=== PATIENT | female | born 1950 | race African-American/Black ===

== ENCOUNTER 2021-02-02 18:38 | Inpatient (IN) | payer MEDICARE ==
[~2021-02-02] VITALS: Ht 160 cm; Wt 72.4 kg
--- NOTE | 2021-02-02 18:42 | NUR ---
DAUGHTER, MIGDALIA, CALLS AND STATES THAT HER NUMBER IS [phone]. STATES THAT PATIENT MAY HAVE SEVERAL MEMBERS OF THE FAMILY TO CALL AND REQUEST INFORMATION BUT HER AND PATIENT DISCUSSED SHE IS THE ONLY ONE TO RECIEVE UPDATES. NEED TO CLARIFY WITH PATIENT.
--- NOTE | 2021-02-02 18:50 | NUR ---
SPOKE WITH DAUGHTER, MITCHELL FAYE, STATES THAT SHE HAS POA OF THE PATIENT AND THAT MIGDALIA, THE 1ST DAUGHTER TO CALL, IS ATTEMPTING TO PREVENT HER FROM ASSISTING HER MOTHER AND BEING INVOLVED IN CARE. STATES THAT THE PATIENT WOULD NOT WANT CALLS RESTRICTED, THAT FAMILY IS ALLOWED TO CALL FOR UPDATES. ALSO STATES THAT SHE CAN PROVIDE PAPERWORK. PHONE NUMBER [phone]. STATES THAT STAFF NEEDS TO MAKE SURE AND CLARIFY WITH PATIENT HER WISHES, BECAUSE THEY CONFLICT WITH THE WISHES OF MIGDALIA, DAUGHTER.
[2021-02-02 19:13] LABS: ANION GAP 17.4 mmol/L (8-16); CALCIUM 8.7 mg/dL (8.5-10.1); CARBON DIOXIDE 20.8 mmol/L (21.0-32.0); CREATININE - SERUM 1.7 mg/dL (0.6-1.3); POTASSIUM - SERUM 4.2 mmol/L (3.5-5.1)
[2021-02-02 19:26] LABS: ALBUMIN 1.6 g/dL (3.4-5.0); BILIRUBIN - TOTAL 1.8 mg/dL (0.2-1.3); PROTEIN - SERUM 6.3 g/dL (6.4-8.2)
[2021-02-02 19:36] LABS: BASOPHILS 1.3 % (0-2); EOSINOPHILS 6.2 % (0-7); HEMATOCRIT 27.1 % (36.0-48.0); HEMOGLOBIN 9.4 g/dL (12-16); LYMPHOCYTE ABS# 1.03 10x3/uL (1.18-3.74); LYMPHOCYTES 26.7 % (15-50); MCH 31.8 pg (26.0-34.0); MCHC 34.7 g/dL (31.0-37.0); MCV 91.6 fL (80.0-100.0); MEAN PLATELET VOLUME 10.9 fL (7.4-10.4); NEUTROPHIL ABS# 2.04 10x3/uL (1.56-6.13); NEUTROPHILS 52.8 % (40-80); PLATELET COUNT 137 10x3/uL (130-400); RBC 2.96 10x6/uL (4.00-5.40); RDW 15.3 % (11.5-14.5); WBC 3.9 10x3/uL (4.8-10.8)
[2021-02-02] MEDS ORDERED: NORVASC5 MG PO (19:50)
[2021-02-02] MEDS ORDERED: REMERON15 MG PO (19:50)
[2021-02-02] MEDS ORDERED: TENORMIN25 MG PO (19:51)
[2021-02-02] MEDS ORDERED: NORMODYNE / TR100 MG (19:51)
[2021-02-02 20:19] LABS: INFLUENZA TYPE A NEGATIVE (NEGATIVE); INFLUENZA TYPE B NEGATIVE (NEGATIVE); SARS-CoV-2 ANTIGEN NEGATIVE- SARS-COV-2 (NEGATIVE)
[2021-02-02 21:15] LABS: AMYLASE - SERUM 156 U/L (25-115); LIPASE 100 U/L (73-393)
--- NOTE | 2021-02-02 21:36 | NUR ---
REPORT RECEIVED FROM WILL IN ER, AWAITING PT'S ARRIVAL TO ROOM 2101.
[2021-02-02 22:00] LABS: INR 1.33 (0.85-1.17); PROTIME 15.2 SECONDS (11.6-15.0)
[2021-02-02 22:04] LABS: D-DIMER-QUANTITATIVE 3.19 ug/mLFEU (0.20-0.54)
--- NOTE | 2021-02-02 22:13 | NUR ---
PT TO ROOM 2102 VIA STRETCHER ACCOMPANIED BY HOSPITAL STAFF.
[2021-02-02 22:53] LABS: APTT 26.9 SECONDS (22.8-39.4)
[2021-02-03 01:45] VITALS: BP 104/58; BMI 29.2
[2021-02-03 04:30] VITALS: BP 100/54
[2021-02-03 08:07] LABS: BASOPHILS 1.2 % (0-2); EOSINOPHILS 8.4 % (0-7); LYMPHOCYTES 40.2 % (15-50); MCH 31.9 pg (26.0-34.0); MCHC 35.1 g/dL (31.0-37.0); MCV 91.1 fL (80.0-100.0); MEAN PLATELET VOLUME 11.5 fL (7.4-10.4); MONOCYTES 13.9 % (2-11); NEUTROPHIL ABS# 1.17 10x3/uL (1.56-6.13); NEUTROPHILS 36.3 % (40-80); RDW 15.5 % (11.5-14.5); RETIC 1.26 % (0.45-2.28); WBC 3.2 10x3/uL (4.8-10.8)
[2021-02-03 08:19] LABS: % SATURATION 135 % (15-55); IRON 57 ug/dl (35-150); RBC 2.13 10x6/uL (4.00-5.40); TOTAL IRON BIND CAPACITY 42 ug/dl (260-445)
[2021-02-03 08:22] LABS: HEMATOCRIT 19.4 % (36.0-48.0); HEMOGLOBIN 6.8 g/dL (12-16); PLATELET COUNT 106 10x3/uL (130-400)
[2021-02-03 08:35] VITALS: BP 78/43
[2021-02-03 08:47] LABS: BILIRUBIN - TOTAL 1.27 mg/dL (0.2-1.3); CALCIUM 7.9 mg/dL (8.5-10.1); CARBON DIOXIDE 20.1 mmol/L (21.0-32.0); CREATININE - SERUM 1.5 mg/dL (0.6-1.3); MAGNESIUM - SERUM 1.3 mg/dL (1.8-2.4); PHOSPHOROUS 3.1 mg/dL (2.5-4.9)
[2021-02-03 08:48] LABS: ALBUMIN 1.1 g/dL (3.4-5.0); ANION GAP 13.3 mmol/L (8-16); POTASSIUM - SERUM 3.4 mmol/L (3.5-5.1); PROTEIN - SERUM 4.6 g/dL (6.4-8.2)
--- NOTE | 2021-02-03 09:43 | NUR ---
BLOOD BANK CALLED WITH RESULT OF ANTIBODY SO MAY BE AWHILE FOR UNITS FOR TRANSFUSION. NURSE NOTIFIED.
[2021-02-03 12:10] VITALS: BP 77/33
[2021-02-03] MEDS ORDERED: CHRONULAC30 ML PO (13:09)
[2021-02-03] MEDS ORDERED: HYDROCHLOROTHIA25 MG PO (13:09)
--- NOTE | 2021-02-03 15:33 | NUR ---
DAUGHTER MIGDALIA CALLED TO ASK RN TO BRING OUT PATIENT'S ID, SS CARD, AND MEDICAID CARD. PT VOICED THAT SHE DID NOT WANT THESE ITEMS GIVEN TO HER DAUGHTER. MIGDALIA INFORMED OF PT WISHES AND ASSURED THAT PT BELONGINGS WOULD BE SAFE.
[2021-02-03 16:16] VITALS: BP 54/63
[2021-02-03 22:30] VITALS: BP 91/54
[2021-02-04 04:00] VITALS: BP 96/48
[2021-02-04 05:16] LABS: ANION GAP 14.4 mmol/L (8-16); CREATININE - SERUM 1.6 mg/dL (0.6-1.3); MAGNESIUM - SERUM 1.4 mg/dL (1.8-2.4); PHOSPHOROUS 3.1 mg/dL (2.5-4.9); POTASSIUM - SERUM 3.4 mmol/L (3.5-5.1)
[2021-02-04 07:45] LABS: EOSINOPHILS 10.8 % (0-7); LYMPHOCYTE ABS# 1.03 10x3/uL (1.18-3.74); MCHC 34.5 g/dL (31.0-37.0); MEAN PLATELET VOLUME 11.1 fL (7.4-10.4); MONOCYTES 16.3 % (2-11); NEUTROPHILS 40.9 % (40-80); PLATELET COUNT 127 10x3/uL (130-400); RDW 16.4 % (11.5-14.5); WBC 3.4 10x3/uL (4.8-10.8)
[2021-02-04 07:47] LABS: HEMATOCRIT 26.1 % (36.0-48.0)
--- NOTE | 2021-02-04 09:09 | NUR ---
PT AWAKE AND ALERT SITTING ON SIDE OF BED. PT INSITING ON GOING HOME TODAY, SPOKE WITH PT AT THIS TIME REGARDING TREATMENT PLAN. CALLED PT DAUGHTER FROM ROOM TO TALK TO PT REGARDING HER GOING HOME AND BEING HERE FOR TREATMENT. DIRTY LINENS TAKEN FROM ROOM. PT DENIES ANY FURTHER NEEDS. CLWR.
--- NOTE | 2021-02-04 09:31 | NUR ---
AM MEDS GIVEN AT THIS TIME PER EMAR. PT AWAKE, NONVERBAL. PT NODS HEAD WHEN ASKED IF HE WAS COMFORTABLE. RR EVEN NON LABORED, TRACH COLLAR IN PLACE. CLWR.
--- NOTE | 2021-02-04 11:03 | NUR ---
NEW LINENS PLACED ON PT BED, PT PULLED OUT HER IV , REFUSES TO HAVE ANOTHER PLACED AT THIS TIME. NEW GOWN PLACED ON PT. PT INSISTING ON GOING HOME. EDUCATION GIVEN TO PT REGARDING HER CARE PLAN AND HER NEED FOR THE HOSPITAL. PT ASSISTED INTO BED, TURNED CHANNEL ON TV AND PLCED PHONE WITHIN REACH. PT CALMED. NO FURTHER NEEDS VOICED, CLWR.
--- NOTE | 2021-02-04 11:30 | NUR ---
SPOKE WITH JAYLAN SILVA REGARDING PT PULLING OUT HER IV AND NOT ALLOWING NURSE TO PLACE ONE AT THIS TIME. ALSO RECEIVED TELEPHONE ORDER FOR DIET FOR LUNCH.
[2021-02-04 12:32] VITALS: Ht 160 cm; Wt 72.4 kg
[2021-02-04 15:53] VITALS: BP 119/76
--- NOTE | 2021-02-04 16:55 | NUR ---
PT DAUGHTER, MIGDALIA ADORNO CAME TO UNIT. TILA SPOKE WITH NURSE REGARDING HER AND HER SISTER BEING POA OF PT AND SHE WAS HER MAGNETIZER. D/T PT BEING A PUI DAUGHTER UNABLE TO VISIT WITH PT. . SPOKE WITH BALANCE TRUING INSPECTOR AND GAVE DAUGHTER EMAIL TO SEND PAPERWORK FOR PT RECORDS.
--- NOTE | 2021-02-04 17:25 | NUR ---
DR DUFF AND NURSE SPOKE WITH PT AT BEDSIDE REGARDING HER TREATMENT PLAN. PT QUITE, BUT RECEPTIVE. PT WILL BEGIN LOVENOX THERAPY.
--- NOTE | 2021-02-04 17:39 | NUR ---
MEDICATION EDUCATION REGARDING LOVENOX WAS INSTRUCTED TO PT. PT STATES UNDERSTANDING. CALLED PT DAUGHTER PER REQUEST AT BEDSIDE. NO FURTHER NEEDS VOICED. CLWR.
[2021-02-04 19:47] LABS: BILIRUBIN NEGATIVE (NEGATIVE); KETONE NEGATIVE (NEGATIVE); NITRITE NEGATIVE (NEGATIVE); UROBILINOGEN NORMAL mg/dL (< 2)
[2021-02-04 19:56] LABS: UDS - AMPHET NEGATIVE QUAL (NEGATIVE); UDS - BARB NEGATIVE QUAL (NEGATIVE); UDS - BENZO NEGATIVE QUAL (NEGATIVE); UDS - COCAINE NEGATIVE QUAL (NEGATIVE); UDS - OPIATE NEGATIVE QUAL (NEGATIVE); UDS - PCP NEGATIVE QUAL (NEGATIVE); UDS - THC NEGATIVE QUAL (NEGATIVE)
[2021-02-04 20:00] VITALS: BP 113/83
--- NOTE | 2021-02-04 21:31 | NUR ---
PT LAYING IN BED ON LEFT SIDE. PT IS ALERT AND ORIENTED BUT SEEMS TEARFUL/ANXIOUS. PT STATES IT IS TOO COLD HERE, SO I TURNED HER HEAT ON AND COVERED HER WITH 2 WARM BLANKETS. PT REFUSED TO LET ME PUT THE TELEMETRY ON HER. PT HAS NO IV. PT STATES SHE WANTS TO GET UP AND WALK AROUND. EDUCATION DONE WITH PATIENT ABOUT BLOOD CLOTS AND COVID. PT VERBALIZED UNDERSTANDING. PT GIVEN SCHEDULED MEDICATIONS, URINE SAMPLE COLLECTED AT 1930 AND SENT TO LAB. PT LOOKING FOR HER DIP TOBACCO AND COULD NOT FIND IT. RN LOOKED WELL AND COULD NOT FIND IT. PT DENIES PAIN OR DISCOMFORT AT THIS TIME. WILL CONTINUE TO MONITOR.
[2021-02-05 06:01] LABS: BASOPHILS 1.2 % (0-2); EOSINOPHILS 9.6 % (0-7); HEMATOCRIT 23.3 % (36.0-48.0); LYMPHOCYTE ABS# 1.11 10x3/uL (1.18-3.74); LYMPHOCYTES 33.1 % (15-50); MCH 30.8 pg (26.0-34.0); MCHC 34.3 g/dL (31.0-37.0); MCV 89.6 fL (80.0-100.0); MEAN PLATELET VOLUME 11.1 fL (7.4-10.4); MONOCYTES 16.7 % (2-11); NEUTROPHIL ABS# 1.32 10x3/uL (1.56-6.13); NEUTROPHILS 39.4 % (40-80); PLATELET COUNT 121 10x3/uL (130-400); RDW 16.5 % (11.5-14.5); WBC 3.4 10x3/uL (4.8-10.8)
--- NOTE | 2021-02-05 06:20 | NUR ---
PT LAYING IN BED SUPINE, PT HAS BOWEL MOVEMENT ALL OVER HER BED SHEETS. PT APPEARS TO BE NAKED UNDER BLANKET. PT GOWN IS ON THE FLOOR ALSO WITH BOWEL MOVEMENT ON IT. PT WOKEN UP TO GET A BATH AND PT YELLED AT NURSE AND CLAY SHOP SUPERVISOR UNTIL WE LEFT THE ROOM. PT WAS CURSING IN A THREATENING MANNER AND REFUSED TO LET US CLEAN HER OR HER BED.
[2021-02-05 06:24] LABS: ALBUMIN 1.3 g/dL (3.4-5.0); ANION GAP 15.2 mmol/L (8-16); BILIRUBIN - DIRECT 0.99 mg/dL (0.00-0.30); BILIRUBIN - INDIRECT 0.43 mg/dL (0.00-1.00); BILIRUBIN - TOTAL 1.42 mg/dL (0.2-1.3); CALCIUM 8.3 mg/dL (8.5-10.1); CARBON DIOXIDE 19.7 mmol/L (21.0-32.0); CREATININE - SERUM 1.6 mg/dL (0.6-1.3); MAGNESIUM - SERUM 1.5 mg/dL (1.8-2.4); PHOSPHOROUS 3.2 mg/dL (2.5-4.9); PROTEIN - SERUM 5.2 g/dL (6.4-8.2)
[2021-02-05 06:35] LABS: POTASSIUM - SERUM 2.9 mmol/L (3.5-5.1)
--- NOTE | 2021-02-05 06:38 | NUR ---
CRITICAL LAB CALLED TO SAMPLE GRINDER LUIS MCKNIGHT. FOLLOWING EP PROTOCOL WITH PO ORDERS D/T NO IV
--- NOTE | 2021-02-05 08:05 | NUR ---
NURSE ENTERED ROOM WITH BREAKFAST TRAY, ATTEMPTED TO TALK TO PT. PT SCREAMED "LEAVE ME ALONE," NURSE ATTEMPTED TO CONSOLE PT, PT COVERED HEAD WITH BLANKET AND WOULD NOT SPEAK. PT CURSED AT NURSE REGARDING TAKING HER MEDS. NO FURTHER NEEDS VOICED AT THIS TIME. CLWR, WILL ATTEMPT LATER.
[2021-02-05 09:12] LABS: HEPATITIS C ANTIBODY <0.1 S/CO RAT (0.0-0.9)
--- NOTE | 2021-02-05 10:02 | NUR ---
NURSE AND LAYBOY OPERATOR ADITI ENTERED ROOM. PT HOLLARED, BUT MORE RECEPTIVE. SPOKE WITH PT REGARDING NEED FOR MEDICATION. MEDS TAKEN AND PT REFUSED FOR AN IV TO BE PLACED AND REFUSED TO EAT BREAKFAST AND REFUSED TO HAVE A GOWN PLACED ON AT THIS TIME. NO NEEDS VOICED. LIGHTS TURNED OFF PER REQUEST. CLWR.
[2021-02-05 10:12] LABS: ANA REFLEX - DIRECT Negative (Negative)
[2021-02-05 11:11] LABS: SPE - A/G RATIO 0.6 (0.7-1.7); SPE - ALBUMIN 1.8 g/dL (2.9-4.4); SPE - ALPHA-1 GLOBULIN 0.1 g/dL (0.0-0.4); SPE - ALPHA-2 GLOBULIN 0.3 g/dL (0.4-1.0); SPE - BETA GLOBULIN 0.7 g/dL (0.7-1.3); SPE - GAMMA GLOBULIN 1.8 g/dL (0.4-1.8); SPE - M-SPIKE Not Observed g/dL (Not Observed); SPE - TOTAL PROTEIN 4.7 g/dL (6.0-8.5)
--- NOTE | 2021-02-05 13:33 | NUR ---
PT ASSISTED WITH PARTIAL BATH, LINEN CHANGE. PT WAS ATTEMPTING TO EXIT THE ROOM. PT REORIENTED AND ASSISTED INTO ROOM. PT DAUGHTER CALLED AND TRANSFERRED INTO ROOM. PT TALKED TO DAUGHTER ON PHONE AND CUSSING, LAUREN. PT REFUSES ANY FURTHER TREATMENT AT THIS TIME. CLWR.
[2021-02-05 15:00] VITALS: BP 110/50
--- NOTE | 2021-02-05 16:51 | NUR ---
2 ATTEMPTS MADE BY LAB TO DRAW POTAS. LEVEL. PT REFUSED AND WOULD NOT ALLOW EITHER EMPLOYEE TO OBTAIN LAB.
[2021-02-05 21:00] VITALS: BP 150/94
[2021-02-05 23:56] VITALS: BP 123/84
[2021-02-06 06:28] LABS: BASOPHILS 1.1 % (0-2); EOSINOPHILS 7.5 % (0-7); HEMATOCRIT 25.1 % (36.0-48.0); HEMOGLOBIN 8.6 g/dL (12-16); LYMPHOCYTE ABS# 1.29 10x3/uL (1.18-3.74); LYMPHOCYTES 34.8 % (15-50); MCHC 34.3 g/dL (31.0-37.0); MCV 90.6 fL (80.0-100.0); MONOCYTES 14.8 % (2-11); NEUTROPHIL ABS# 1.55 10x3/uL (1.56-6.13); NEUTROPHILS 41.8 % (40-80); PLATELET COUNT 131 10x3/uL (130-400); RBC 2.77 10x6/uL (4.00-5.40); RDW 16.8 % (11.5-14.5); WBC 3.7 10x3/uL (4.8-10.8)
[2021-02-06 06:56] LABS: CALCIUM 8.5 mg/dL (8.5-10.1); CARBON DIOXIDE 20.8 mmol/L (21.0-32.0); CREATININE - SERUM 1.5 mg/dL (0.6-1.3); MAGNESIUM - SERUM 1.3 mg/dL (1.8-2.4); PHOSPHOROUS 3.4 mg/dL (2.5-4.9); POTASSIUM - SERUM 3.8 mmol/L (3.5-5.1)
--- NOTE | 2021-02-06 07:54 | NUR ---
AM MEDS GIVEN. PT UPSET AND WANTS TO GO HOME TODAY. REASSURANCE GIVEN. PT AGITATED AND STATES "I WILL GO HOME TODAY," ASSISTED PT WITH BREAKFAST TRAY AND ENCOURAGED HER TO STAY AND TALK TO MD. PT CALM, NO FURTHER NEEDS VOICED. CLWR.
[2021-02-06 08:01] VITALS: BP 131/79
[2021-02-06 14:10] LABS: CA125 61.8 U/mL (0.0-38.1)
[2021-02-06 15:24] VITALS: BP 99/63
--- NOTE | 2021-02-06 17:57 | NUR ---
PT EXIT ROOM WITH WALKER, CUSSING AT NURSE SAYING SHE WANTS TO GO HOME. PT ATTEMPTED TO WALK DOWN HALLWAY, SPOKE WITH PT REGARDING THE NEED FOR HER TO STAY IN THE HOSPITAL. HEALTH BENEFITS SPECIALIST ASSISTED NURSE AND GOT PT TO ROOM AND TO SIT ON BED. CALLED PT DAUGHTER AND HAD HER SPEAK WITH PT. PT AGREED AT THIS TIME TO STAY THE NIGHT. PT CALMED DOWN, RR EVEN NON LABORED. PT LIED DOWN IN BED, DENIES ANY FURTHER NEEDS. CLWR.
--- NOTE | 2021-02-07 | NUR ---
PT GOT DRESSED IN HER ROOM AND STARTED TO LEAVE. PT STATES DAUGHTER RODOLFO IS COMING TO PICK HER UP. WHEN RN CALLED RODOLFO THERE WAS NO ANSWER. PT AGREED TO SIT IN A WHEELCHAIR AND LET NURSE PUSH IT AROUND THE UNIT FOR 20 MIN. PT THEN AGREED TO GO BACK TO HER ROOM AND WAIT FOR MORNING.
[2021-02-07 02:16] VITALS: BP 136/85
[2021-02-07 05:13] LABS: BASOPHILS 1.3 % (0-2); EOSINOPHILS 5.3 % (0-7); HEMOGLOBIN 8.9 g/dL (12-16); IMMATURE GRANULOCYTES 0.2 % (0-5); LYMPHOCYTE ABS# 1.41 10x3/uL (1.18-3.74); LYMPHOCYTES 31.4 % (15-50); MCHC 34.2 g/dL (31.0-37.0); MCV 90.6 fL (80.0-100.0); MEAN PLATELET VOLUME 11.1 fL (7.4-10.4); MONOCYTES 13.4 % (2-11); NEUTROPHIL ABS# 2.17 10x3/uL (1.56-6.13); NEUTROPHILS 48.4 % (40-80); PLATELET COUNT 143 10x3/uL (130-400); RBC 2.87 10x6/uL (4.00-5.40); RDW 17.2 % (11.5-14.5); WBC 4.5 10x3/uL (4.8-10.8)
[2021-02-07 05:27] LABS: ANION GAP 14.4 mmol/L (8-16); CALCIUM 8.9 mg/dL (8.5-10.1); CARBON DIOXIDE 21.2 mmol/L (21.0-32.0); CREATININE - SERUM 1.3 mg/dL (0.6-1.3); MAGNESIUM - SERUM 1.4 mg/dL (1.8-2.4); PHOSPHOROUS 3.2 mg/dL (2.5-4.9)
[2021-02-07 05:29] LABS: POTASSIUM - SERUM 4.6 mmol/L (3.5-5.1)
--- NOTE | 2021-02-07 10:20 | NUR ---
Nutrition Follow-up: Noted pt with some confusion. Sleeping soundly this AM. Nursing reports that she did not eat breakfast. Overall poor PO intake reported. Diet: Cardiac PO intake: 0-25% Wt: 154.3# (02/05); 164.8# (02/03) BM: diarrhea reported; on Lactulose Labs noted: Mg 1.4, Ammonia 41 Meds noted: Folate, Lactulose, Pepcid, electrolyte protocol -Encourage PO intake and honor food preferences within diet restrictions. -+Ensure with meals. -Pt may benefit from an appetite stimulant. -RD follow-up: 02/11
[2021-02-07 12:23] VITALS: BP 121/69
[2021-02-07 13:56] LABS: ALBUMIN 1.5 g/dL (3.4-5.0); BILIRUBIN - DIRECT 0.76 mg/dL (0.00-0.30); BILIRUBIN - INDIRECT 0.54 mg/dL (0.00-1.00); BILIRUBIN - TOTAL 1.3 mg/dL (0.2-1.3)
[2021-02-07 15:12] LABS: MITOCHONDRIAL ANTIBODY <20.0 Units (0.0-20.0)
--- NOTE | 2021-02-07 16:11 | CN ---
PATIENT NAME:NESSA FRENCH MEDICAL RECORD: [id number] : 54 LOCATION:D.[address] D.210 ADMIT DATE: 02/02/21 ACCOUNT: [id number] CONSULTING PHYSICIAN: FESTUS VILLATORO MD REFERRING PHYSICIAN: BEAN PATEL MD DATE OF CONSULTATION: 02/06/2021 PSYCHIATRIC CONSULTATION IDENTIFYING DATA: The patient is 70 years old and she was admitted to the hospital secondary to anemia. CHIEF COMPLAINT: None. HISTORY OF PRESENT ILLNESS: I was asked to see the patient because of some questionable mental status changes and some notation on the request that she has schizophrenia. Upon interview, the patient is alone in her hospital room and there is no one available to assist with the interview. Also, there is no information on her prior to what is contained on this admission. 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 She was admitted to the hospital for evaluation. The patient is minimally cooperative. She denies any psychiatric history at all. She looks puzzled when I asked about the diagnosis of schizophrenia, but I find it hard to believe that she has never even heard the word used before. I have nothing to compare her current mental status too, but she is clearly functioning in a well-below average range. She denies being suicidal. She denies psychotic symptoms. She denies a psychiatric history. ASSESSMENT: Adjustment disorder with mixed emotional features. PLAN: At this time, the patient is denying everything of a psychiatric nature and there are no collateral sources of information available. She is not fully oriented and is clearly impaired cognitively, but this may be something acute or it may be that she is again of below-normal intelligence. She is not reporting or displaying any symptoms that would represent an acute risk or danger to herself. So at this point my recommendation would be to have case management assess her home situation for safety and if there is collateral information that would be helpful, please communicate it to me. Furthermore, if the patient develops symptoms that indicate a potential dangerousness, I would be happy to reassess her situation. TRANSINT:[id number] Voice Confirmation ID: [id number] DOCUMENT ID: [id number] FESTUS VILLATORO MD at 1611 CC: [id number] DICTATION DATE: 02/06/21 1600 FACTORY REPRESENTATIVE: 02/06/21 2728 ADM IN [facility] [address] [id number]
[2021-02-07 20:32] VITALS: BP 98/74
[2021-02-08 05:23] LABS: BASOPHILS 1.2 % (0-2); EOSINOPHILS 5.9 % (0-7); HEMATOCRIT 28.2 % (36.0-48.0); HEMOGLOBIN 9.5 g/dL (12-16); LYMPHOCYTE ABS# 1.61 10x3/uL (1.18-3.74); LYMPHOCYTES 37.8 % (15-50); MCHC 33.7 g/dL (31.0-37.0); MCV 92.2 fL (80.0-100.0); MEAN PLATELET VOLUME 11.9 fL (7.4-10.4); MONOCYTES 9.4 % (2-11); NEUTROPHIL ABS# 1.95 10x3/uL (1.56-6.13); NEUTROPHILS 45.7 % (40-80); PLATELET COUNT 168 10x3/uL (130-400); RBC 3.06 10x6/uL (4.00-5.40); RDW 17.3 % (11.5-14.5); WBC 4.3 10x3/uL (4.8-10.8)
[2021-02-08 05:45] LABS: ANION GAP 16.2 mmol/L (8-16); CARBON DIOXIDE 20.2 mmol/L (21.0-32.0); CREATININE - SERUM 1.4 mg/dL (0.6-1.3); MAGNESIUM - SERUM 1.4 mg/dL (1.8-2.4); PHOSPHOROUS 2.8 mg/dL (2.5-4.9); POTASSIUM - SERUM 4.4 mmol/L (3.5-5.1)
--- NOTE | 2021-02-08 06:15 | NUR ---
PT HAS BEEN WONDERING AROUND THE UNIT MOST OF THE NIGHT. UPSET AND KEEPS STATING SHE WANTS TO GO HOME. WHEN TRYING TO REDIRECT PT SHE BECOMES VERY UPSET AND HARD TO CALM.
--- NOTE | 2021-02-08 06:16 | NUR ---
I have reviewed this patient and I concur with the Shift Assessment completed by the Licensed Practical Nurse today this shift.
[2021-02-08 08:29] VITALS: BP 112/77
[2021-02-08 14:11] LABS: SMOOTH MUSCLE ABS (ACTIN) 11 Units (0-19)
--- NOTE | 2021-02-08 14:14 | NUR ---
ASSUMED PRIMARY CARE FOR PATIENT. PATIENT FHAS COAT OVER HER HEAD AND REFUSED TO HAVE A BLANKET OVER HER HEAD INSTEAD. BOTTOM LINEN SHEET IS DIRTY AND WITH CALIN SAINZ AND NATAN LAYTON PRESENT PATIENT REFUSED TO HAVE LINENS CHANGED. STATES THAT "MY DAUGHTER WILL CHANGE THEM". HEAD COVERED BACK UP.
--- NOTE | 2021-02-08 14:48 | NUR ---
FURTHER ASSESSMENT OF PATIENT IN SHOWER AT THIS TIME, IS SOME REDNESS UNDER RIGHT BREAST AND AROUND LEFT LOWER SIDE OF ABDOMEN AROUND BELLY BUTTON. BED LINENS CHANGED.
[2021-02-08 15:12] LABS: FACTOR II DNA ANALYSIS Negative (())
[2021-02-08 16:45] VITALS: BP 103/58
[2021-02-08 21:14] VITALS: BP 131/70
--- NOTE | 2021-02-09 01:08 | NUR ---
PT SITTING AT NURSES STATION WITH THIS NURSE. PT RESTLESS AND CANT STAY IN ROOM. PT IS COOPERATING WITH THE NURSE REQUEST. PT A/O RR E/U AND VSS. WILL CONTINUE TO MONITOR
[2021-02-09 01:47] VITALS: BP 113/72
--- NOTE | 2021-02-09 02:50 | NUR ---
I have reviewed this patient and I concur with the Shift Assessment completed by the Licensed Practical Nurse today this shift.
[2021-02-09 05:50] VITALS: BP 134/85
--- NOTE | 2021-02-09 06:35 | NUR ---
I have reviewed this patient and I concur with the Shift Assessment completed by the Licensed Practical Nurse today this shift.
[2021-02-09 08:00] VITALS: BP 122/70
[2021-02-09 08:46] LABS: BASOPHILS 1.8 % (0-2); EOSINOPHILS 6.5 % (0-7); HEMATOCRIT 26.1 % (36.0-48.0); HEMOGLOBIN 8.9 g/dL (12-16); LYMPHOCYTE ABS# 1.71 10x3/uL (1.18-3.74); LYMPHOCYTES 42.8 % (15-50); MCHC 34.1 g/dL (31.0-37.0); MCV 90.9 fL (80.0-100.0); MEAN PLATELET VOLUME 11.6 fL (7.4-10.4); NEUTROPHIL ABS# 1.48 10x3/uL (1.56-6.13); NEUTROPHILS 36.9 % (40-80); PLATELET COUNT 155 10x3/uL (130-400); RBC 2.87 10x6/uL (4.00-5.40)
[2021-02-09 09:02] LABS: ALBUMIN 1.7 g/dL (3.4-5.0); ANION GAP 13.7 mmol/L (8-16); BILIRUBIN - TOTAL 1.46 mg/dL (0.2-1.3); CALCIUM 8.6 mg/dL (8.5-10.1); CARBON DIOXIDE 22.3 mmol/L (21.0-32.0); CREATININE - SERUM 1.4 mg/dL (0.6-1.3); MAGNESIUM - SERUM 1.4 mg/dL (1.8-2.4); PROTEIN - SERUM 6.1 g/dL (6.4-8.2)
[2021-02-09 11:00] VITALS: BP 121/76
[2021-02-09 15:00] VITALS: BP 124/73
--- NOTE | 2021-02-09 15:16 | MORECARE ---
CASE MANAGEMENT DISCHARGE SUMMARY PATIENT: NESSA FRENCH UNIT: [id number] ADM DATE: 02/02/21 AGE: 70 : 52 SEX: F ROOM/BED: D.210 AUTHOR: SUSIE,DOC PHYSICIAN: REFERRING PHYSICIAN: BEAN PATEL MD DATE OF SERVICE: 02/09/21 Case Management Discharge Planning Summary DCP REVIEW SUMMARY ANTICIPATED D/C DATE: EXPECTED LOS : CASE STATUS: DCP Initiated INITIAL REVIEW: 02/02/2021 INITIAL REVIEWER: Joe Oneill FINAL DISCHARGE DISPOSITION: : FINAL REVIEWER: FINAL REVIEW DATE: DCP Focus Questions & Answers QUESTION: ANSWER : PATIENT: NESSA FRENCH ENCOUNTER: [id number] MEDICAL RECORD#: [id number] ADMISSION DATE: 02/02/2021 DISCHARGE DATE: ATTENDING MD: RAIN CRANDALL : AGE: 70 MARITAL STATUS: M DC PLAN ID: [id number] FACILITY: [facility] PRINTED ON: 02/09/21 15:16 CT All edits/amendments must be made on the electronic document DICTATION DATE: 02/09/21 151 NUCLEAR UNIT OPERATOR: DM 02/09/21 151 RPT#: [id number] DC DATE: STATUS: ADM IN [facility] [address] [place] [address] END OF REPORT
--- NOTE | 2021-02-09 15:41 | MORECARE ---
CASE MANAGEMENT DISCHARGE SUMMARY PATIENT: NESSA FRENCH UNIT: [id number] ADM DATE: 02/02/21 AGE: 70 : 52 SEX: F ROOM/BED: D.2106 AUTHOR: STEPHENIE RICHARDS PHYSICIAN: REFERRING PHYSICIAN: BEAN PATEL MD DATE OF SERVICE: 02/09/21 Case Management Discharge Planning Summary COMMENTS ENTERED DATE: 02/09/21 15:37 CT COMMENT TYPE: Discharge Planning REVIEWER: Joe Oneill MCC. Telephone conversation with patient's daughter and assumed POA, Sekou Vega ([phone]) at 1153 on 09 February 2021 to complete DC plan and needs. Patient recently moved from another city and is temporarily living with family but will require more assistance than the current arrangement can provide. Sekou stated that she is in the process of getting a handicap accessible apartment for her mother and will arrange 24-hour caregiving through various arrangements with family members. Sekou stated that the apartment is not secured at this time but that is where her Mother will reside. CM informed Sekou that Physician staff are wary of discharging her mother without 24-hour care-giving arranged. CM team suggested retirement as bridge to home until arrangements for the apartment and care could be arranged. Sekou is in agreement with plan and stated that she would like for her mother to go to a skilled bed on a temporary basis. Sekou's choices for SNF are [facility], [facility], and [facility]. JEAN-PIERRE Telephonically signed and placed in chart. Sekou stated that her mother does not have a primary care physician at this time but she is in the process of getting her mother primary care. Sekou voiced no other needs at this time and is satisfied with DC plan. DC IMM telephonically explained, signed, and placed on chart per current Isolation protocols. CM will continue to follow and will assist as needed with dc plans/needs. DCP REVIEW SUMMARY ANTICIPATED D/C DATE: EXPECTED LOS : CASE STATUS: DCP Initiated INITIAL REVIEW: 02/02/2021 INITIAL REVIEWER: Joe Oneill FINAL DISCHARGE DISPOSITION: : FINAL REVIEWER: FINAL REVIEW DATE: DCP Focus Questions & Answers QUESTION: ANSWER : PATIENT: NESSA FRENCH ENCOUNTER: [id number] MEDICAL RECORD#: [id number] ADMISSION DATE: 02/02/2021 DISCHARGE DATE: ATTENDING MD: RAIN CRADNALL : AGE: 70 MARITAL STATUS: M DC PLAN ID: [id number] FACILITY: [facility] PRINTED ON: 02/09/21 15:41 CT All edits/amendments must be made on the electronic document DICTATION DATE: 02/09/211539 SECURITY RISK ANALYST: NANCY 02/09/21 154 RPT#: [id number] DC DATE: STATUS: ADM IN [facility] [address] [place] [address] END OF REPORT
--- NOTE | 2021-02-09 15:52 | MORECARE ---
CASE MANAGEMENT DISCHARGE SUMMARY PATIENT: NESSA FRENCH UNIT: [id number] ADM DATE: 02/02/21 AGE: 70 : 52 SEX: F ROOM/BED: D.2109 AUTHOR: STEPHENIE RICHARDS PHYSICIAN: REFERRING PHYSICIAN: BEAN PATEL MD DATE OF SERVICE: 02/09/21 Case Management Discharge Planning Summary COMMENTS ENTERED DATE: 02/09/21 15:37 CT COMMENT TYPE: Discharge Planning REVIEWER: Joe Oneill HALFWAY. Telephone conversation with patient's daughter and assumed POA, Sekou Vega ([phone]) at 1153 on 09 February 2021 to complete DC plan and needs. Patient recently moved from another city and is temporarily living with family but will require more assistance than the current arrangement can provide. Sekou stated that she is in the process of getting a handicap accessible apartment for her mother and will arrange 24-hour caregiving through various arrangements with family members. Sekou stated that the apartment is not secured at this time but that is where her Mother will reside. CM informed Sekou that Physician staff are wary of discharging her mother without 24-hour care-giving arranged. CM team suggested retirement as bridge to home until arrangements for the apartment and care could be arranged. Sekou is in agreement with plan and stated that she would like for her mother to go to a skilled bed on a temporary basis. Sekou's choices for SNF are [facility], [place], and [facility]. JEAN-PIERRE Telephonically signed and placed in chart. Sekou stated that her mother does not have a primary care physician at this time but she is in the process of getting her mother primary care. Sekou voiced no other needs at this time and is satisfied with DC plan. DC IMM telephonically explained, signed, and placed on chart per current Isolation protocols. CM will continue to follow and will assist as needed with dc plans/needs. DCP REVIEW SUMMARY ANTICIPATED D/C DATE: EXPECTED LOS : CASE STATUS: DCP Initiated INITIAL REVIEW: 02/02/2021 INITIAL REVIEWER: Joe Oneill FINAL DISCHARGE DISPOSITION: : FINAL REVIEWER: FINAL REVIEW DATE: DCP Focus Questions & Answers DCP Evaluation QUESTION: ANSWER Patient gives permission to discuss discharge plans with: (name, relationship and number) : JULIO CHONG, Patient's ability to cope with chronic illness : d. No chronic illness Patient's current cognitive status: : *Oriented to person, place, situation, time and present Patient's current cognitive status: : Intermittently confused / memory changes Family / Caregiver's ability to cope with chronic illness: : a. Adequate (ability to meet patient's medical needs, ensures patient attends medical appts.) Patient and/or caregiver agree upon recommended discharge plan? : Yes Physical Status: : Mobility impaired Physical Status: : Partial care dependence Family / Caregiver's ability to cope with chronic illness: : a. Adequate (ability to meet patient's medical needs, ensures patient attends medical appts.) Functional screen assessment: : Unable to manage ADLs without immediate ongoing assistance Functional screen assessment: : Can meet basic needs but may require referral for resources Does the patient have the ability to pay for or attain post discharge needs / services? : Yes Partial Dependence, assistance required for: : Ambulation / Mobility Living Arrangements: : Home with Extended Family Is there a likelihood that the patient will require additional services to return to the preadmission environment? : Yes Baseline cognitive status: : *Oriented to person, place, situation, time and present Baseline cognitive status: : Intermittently confused / memory changes Patient with capacity for self-care or can be cared for in same environment as prior to hospitalization? : No Physical environment modification needed / anticipated for discharge: : No Medication Management: : Patient states can afford medications Medication Management: : Patient states can read and understand medication labels [facility]acy name([facility]): : [facility] Does Patient have transportation to get home and to follow-up medical appointments when discharged from the hospital? : Yes Would patient like to participate in any Care Coordination programs (if applicable): : Not applicable Does the patient have electricity at home? : Yes Does the patient have running water in their house? : Yes Equipment in use: : Cane - Single Leg Mental health screen: : No mental health history DCP Re-evaluation QUESTION: ANSWER Would patient like to participate in any Care Coordination programs (if applicable): : Not applicable PATIENT: NESSA FRENCH ENCOUNTER: [id number] MEDICAL RECORD#: [id number] ADMISSION DATE: 02/02/2021 DISCHARGE DATE: ATTENDING MD: RAIN CRANDALL : AGE: 70 MARITAL STATUS: M DC PLAN ID: [id number] FACILITY: [facility] PRINTED ON: 02/09/21 15:52 CT All edits/amendments must be made on the electronic document DICTATION DATE: 02/09/211551 VICE PRESIDENT OF BRAND MANAGEMENT: NANCY 02/09/211551 RPT#: [id number] DC DATE: STATUS: ADM IN [facility] [address] [place] [address] END OF REPORT
--- NOTE | 2021-02-09 16:25 | MORECARE ---
CASE MANAGEMENT DISCHARGE SUMMARY PATIENT: NESSA FRENCH UNIT: [id number] ADM DATE: 02/02/21 AGE: 70 : 52 SEX: F ROOM/BED: D.2102 AUTHOR: SUSIE,DOC PHYSICIAN: REFERRING PHYSICIAN: BEAN PATEL MD DATE OF SERVICE: 02/09/21 Case Management Discharge Planning Summary COMMENTS ENTERED DATE: 02/09/21 16:19 CT COMMENT TYPE: Discharge Planning REVIEWER: Lona Ware CM faxed referral to [facility] for SNF. CM will continue to follow and assist with discharge planning/needs. ENTERED DATE: 02/09/21 15:37 CT COMMENT TYPE: Discharge Planning REVIEWER: Joe [facility]. Telephone conversation with patient's daughter and assumed Rodolfo HALE ([phone]) at 1153 on 09 February 2021 to complete DC plan and needs. Patient recently moved from another city and is temporarily living with family but will require more assistance than the current arrangement can provide. Rodolfo stated that she is in the process of getting a handicap accessible apartment for her mother and will arrange 24-hour caregiving through various arrangements with family members. Rodolfo stated that the apartment is not secured at this time but that is where her Mother will reside. CM informed Rodolfo that Physician staff are wary of discharging her mother without 24-hour care-giving arranged. CM team suggested long-term as bridge to home until arrangements for the apartment and care could be arranged. Rodolfo is in agreement with plan and stated that she would like for her mother to go to a skilled bed on a temporary basis. Rodolfo's choices for SNF are [facility], [place] [facility], and [facility]. JEAN-PIERRE Telephonically signed and placed in chart. Rodolfo stated that her mother does not have a primary care physician at this time but she is in the process of getting her mother primary care. Rodolfo voiced no other needs at this time and is satisfied with DC plan. DC IMM telephonically explained, signed, and placed on chart per current Isolation protocols. CM will continue to follow and will assist as needed with dc plans/needs. DCP REVIEW SUMMARY ANTICIPATED D/C DATE: EXPECTED LOS : CASE STATUS: DCP Initiated INITIAL REVIEW: 02/02/2021 INITIAL REVIEWER: Joe Oneill FINAL DISCHARGE DISPOSITION: : FINAL REVIEWER: FINAL REVIEW DATE: DCP Focus Questions & Answers DCP Evaluation QUESTION: ANSWER Patient gives permission to discuss discharge plans with: (name, relationship and number) : RODOLFO FAYE, DAUGHTER, Patient's ability to cope with chronic illness : d. No chronic illness Patient's current cognitive status: : *Oriented to person, place, situation, time and present Patient's current cognitive status: : Intermittently confused / memory changes Family / Caregiver's ability to cope with chronic illness: : a. Adequate (ability to meet patient's medical needs, ensures patient attends medical appts.) Patient and/or caregiver agree upon recommended discharge plan? : Yes Physical Status: : Mobility impaired Physical Status: : Partial care dependence Family / Caregiver's ability to cope with chronic illness: : a. Adequate (ability to meet patient's medical needs, ensures patient attends medical appts.) Functional screen assessment: : Unable to manage ADLs without immediate ongoing assistance Functional screen assessment: : Can meet basic needs but may require referral for resources Does the patient have the ability to pay for or attain post discharge needs / services? : Yes Partial Dependence, assistance required for: : Ambulation / Mobility Living Arrangements: : Home with Extended Family Is there a likelihood that the patient will require additional services to return to the preadmission environment? : Yes Baseline cognitive status: : *Oriented to person, place, situation, time and present Baseline cognitive status: : Intermittently confused / memory changes Patient with capacity for self-care or can be cared for in same environment as prior to hospitalization? : No Physical environment modification needed / anticipated for discharge: : No Medication Management: : Patient states can afford medications Medication Management: : Patient states can read and understand medication labels [facility] Does Patient have transportation to get home and to follow-up medical appointments when discharged from the hospital? : Yes Would patient like to participate in any Care Coordination programs (if applicable): : Not applicable Does the patient have electricity at home? : Yes Does the patient have running water in their house? : Yes Equipment in use: : Cane - Single Leg Mental health screen: : No mental health history DCP Re-evaluation QUESTION: ANSWER Would patient like to participate in any Care Coordination programs (if applicable): : Not applicable PATIENT: NESSA FRENCH ENCOUNTER: [id number] MEDICAL RECORD#: [id number] ADMISSION DATE: 02/02/2021 DISCHARGE DATE: ATTENDING MD: RAIN CRANDALL : AGE: 70 MARITAL STATUS: M DC PLAN ID: [id number] FACILITY: [facility] PRINTED ON: 02/09/21 16:25 CT All edits/amendments must be made on the electronic document DICTATION DATE: 02/09/211624 CLOTH GRADER: NANCY 02/09/211624 RPT#: [id number] DC DATE: STATUS: ADM IN [facility] [address] [place] [address] END OF REPORT
[2021-02-09 20:30] VITALS: BP 109/76
[2021-02-10 00:30] VITALS: BP 132/60
[2021-02-10 04:30] VITALS: BP 105/54
[2021-02-10 04:43] LABS: BASOPHILS 0.8 % (0-2); EOSINOPHILS 2.4 % (0-7); HEMATOCRIT 22.2 % (36.0-48.0); IMMATURE GRANULOCYTES 0.3 % (0-5); LYMPHOCYTE ABS# 1.31 10x3/uL (1.18-3.74); LYMPHOCYTES 34.5 % (15-50); MCH 30.3 pg (26.0-34.0); MCHC 33.3 g/dL (31.0-37.0); MEAN PLATELET VOLUME 11.7 fL (7.4-10.4); MONOCYTES 12.6 % (2-11); NEUTROPHIL ABS# 1.88 10x3/uL (1.56-6.13); NEUTROPHILS 49.4 % (40-80); PLATELET COUNT 130 10x3/uL (130-400); RBC 2.44 10x6/uL (4.00-5.40); RDW 16.9 % (11.5-14.5); WBC 3.8 10x3/uL (4.8-10.8)
[2021-02-10 04:49] LABS: HEMOGLOBIN 7.4 g/dL (12-16)
[2021-02-10 05:00] LABS: ALBUMIN 1.3 g/dL (3.4-5.0); ANION GAP 11.2 mmol/L (8-16); BILIRUBIN - TOTAL 1.02 mg/dL (0.2-1.3); CALCIUM 8.5 mg/dL (8.5-10.1); CARBON DIOXIDE 23.1 mmol/L (21.0-32.0); CREATININE - SERUM 1.3 mg/dL (0.6-1.3); MAGNESIUM - SERUM 1.4 mg/dL (1.8-2.4); POTASSIUM - SERUM 4.3 mmol/L (3.5-5.1); PROTEIN - SERUM 5.3 g/dL (6.4-8.2)
[2021-02-10 08:42] VITALS: BP 151/86
--- NOTE | 2021-02-10 09:36 | NUR ---
RESTING IN BED, NO DISTRESS NOTED, ATTEMPING IV, HAVING TROUBLE FINDING VEINS TO HOLD 20 GAUGE, RICARDO ELECTRON BEAM PHOTO MASK TECHNICIAN AWARE, WILL CONT TO LOOK
--- NOTE | 2021-02-10 10:45 | NUR ---
BLOOD INFUSING PER R HAND, CONT TO MONITOR, PT UP IN CHAIR
[2021-02-10 11:43] VITALS: BP 150/82
[2021-02-10 16:33] VITALS: BP 118/77
--- NOTE | 2021-02-10 16:55 | MORECARE ---
CASE MANAGEMENT DISCHARGE SUMMARY PATIENT: NESSA FRENCH UNIT: [id number] ADM DATE: 02/02/21 AGE: 70 : 52 SEX: F ROOM/BED: D.2102 AUTHOR: SUSIE,DOC PHYSICIAN: REFERRING PHYSICIAN: BEAN PATEL MD DATE OF SERVICE: 02/10/21 Case Management Discharge Planning Summary COMMENTS ENTERED DATE: 02/10/21 16:40 CT COMMENT TYPE: Discharge Planning REVIEWER: Joe Oneill DAUGHTER DESIRES UPDATES. Received Phone call from patient's daughter, Rodolfo Faye ([phone]). Rodolfo would like to be notified of which SNF accepts her mother. Rodolfo stated that her mother will try to leave the SNF against medical advice like she did in [place], [place]. Rodolfo would like the name and contact information of the accepting SNF, so that she inquire about options for "flight" prevention. Rodolfo stated that her mother makes choices that are not wholly in her best interest. Rodolfo's Mailing Contact Information: [address] [place] [address], [place], [place]. CM will continue to follow and will assist as needed with dc plans/needs. ENTERED DATE: 02/09/21 16:19 CT COMMENT TYPE: Discharge Planning REVIEWER: Lona Ware CM faxed referral to [facility] for SNF. CM will continue to follow and assist with discharge planning/needs. ENTERED DATE: 02/09/21 15:37 CT COMMENT TYPE: Discharge Planning REVIEWER: Joe Oneill [facility]. Telephone conversation with patient's daughter and assumed POA, Rodolfo Faye ([phone]) at 1153 on 09 February 2021 to complete DC plan and needs. Patient recently moved from another city and is temporarily living with family but will require more assistance than the current arrangement can provide. Rodolfo stated that she is in the process of getting a handicap accessible apartment for her mother and will arrange 24-hour caregiving through various arrangements with family members. Rodolfo stated that the apartment is not secured at this time but that is where her Mother will reside. CM informed Rodolfo that Physician staff are wary of discharging her mother without 24-hour care-giving arranged. CM team suggested alf as bridge to home until arrangements for the apartment and care could be arranged. Rodolfo is in agreement with plan and stated that she would like for her mother to go to a skilled bed on a temporary basis. Rodolfo's choices for SNF are [facility], [place], and [facility]. JEAN-PIERRE Telephonically signed and placed in chart. Rodolfo stated that her mother does not have a primary care physician at this time but she is in the process of getting her mother primary care. Rodolfo voiced no other needs at this time and is satisfied with DC plan. DC IMM telephonically explained, signed, and placed on chart per current Isolation protocols. CM will continue to follow and will assist as needed with dc plans/needs. DCP REVIEW SUMMARY ANTICIPATED D/C DATE: EXPECTED LOS : CASE STATUS: DCP Initiated INITIAL REVIEW: 02/02/2021 INITIAL REVIEWER: Joe Oneill FINAL DISCHARGE DISPOSITION: : FINAL REVIEWER: FINAL REVIEW DATE: DCP Focus Questions & Answers DCP Evaluation QUESTION: ANSWER Family / Caregiver's ability to cope with chronic illness: : a. Adequate (ability to meet patient's medical needs, ensures patient attends medical appts.) Patient gives permission to discuss discharge plans with: (name, relationship and number) : RODOLFO FAYE, DAUGHTER, Patient's ability to cope with chronic illness : d. No chronic illness Patient's current cognitive status: : *Oriented to person, place, situation, time and present Patient's current cognitive status: : Intermittently confused / memory changes Patient and/or caregiver agree upon recommended discharge plan? : Yes Physical Status: : Mobility impaired Physical Status: : Partial care dependence Family / Caregiver's ability to cope with chronic illness: : a. Adequate (ability to meet patient's medical needs, ensures patient attends medical appts.) Functional screen assessment: : Unable to manage ADLs without immediate ongoing assistance Functional screen assessment: : Can meet basic needs but may require referral for resources Does the patient have the ability to pay for or attain post discharge needs / services? : Yes Partial Dependence, assistance required for: : Ambulation / Mobility Living Arrangements: : Home with Extended Family Is there a likelihood that the patient will require additional services to return to the preadmission environment? : Yes Baseline cognitive status: : *Oriented to person, place, situation, time and present Baseline cognitive status: : Intermittently confused / memory changes Patient with capacity for self-care or can be cared for in same environment as prior to hospitalization? : No Physical environment modification needed / anticipated for discharge: : No Medication Management: : Patient states can afford medications Medication Management: : Patient states can read and understand medication labels [facility] Does Patient have transportation to get home and to follow-up medical appointments when discharged from the hospital? : Yes Would patient like to participate in any Care Coordination programs (if applicable): : Not applicable Does the patient have electricity at home? : Yes Does the patient have running water in their house? : Yes Equipment in use: : Cane - Single Leg Mental health screen: : No mental health history DCP Re-evaluation QUESTION: ANSWER Would patient like to participate in any Care Coordination programs (if applicable): : Not applicable PATIENT: NESSA FRENCH ENCOUNTER: [id number] MEDICAL RECORD#: [id number] ADMISSION DATE: 02/02/2021 DISCHARGE DATE: ATTENDING MD: RAIN CRANDALL : AGE: 70 MARITAL STATUS: M DC PLAN ID: [id number] FACILITY: [facility] PRINTED ON: 02/10/21 16:55 CT All edits/amendments must be made on the electronic document DICTATION DATE: 02/10/211654 SEWING MACHINE OPERATOR ZIPPER: NANCY 02/10/211654 RPT#: [id number] DC DATE: STATUS: ADM IN [facility] [address] [place] [address] END OF REPORT
[2021-02-10 20:00] LABS: BASOPHILS 1.1 % (0-2); EOSINOPHILS 5.9 % (0-7); HEMATOCRIT 29.8 % (36.0-48.0); LYMPHOCYTE ABS# 1.61 10x3/uL (1.18-3.74); LYMPHOCYTES 30.8 % (15-50); MCH 30.5 pg (26.0-34.0); MCHC 33.6 g/dL (31.0-37.0); MCV 90.9 fL (80.0-100.0); MEAN PLATELET VOLUME 11.4 fL (7.4-10.4); MONOCYTES 13.6 % (2-11); NEUTROPHIL ABS# 2.54 10x3/uL (1.56-6.13); NEUTROPHILS 48.6 % (40-80); PLATELET COUNT 145 10x3/uL (130-400); RBC 3.28 10x6/uL (4.00-5.40); RDW 16.8 % (11.5-14.5); WBC 5.2 10x3/uL (4.8-10.8)
[2021-02-10 22:06] VITALS: BP 105/67
[2021-02-11 07:36] LABS: BASOPHILS 0.7 % (0-2); EOSINOPHILS 6.9 % (0-7); HEMATOCRIT 30.3 % (36.0-48.0); HEMOGLOBIN 10.1 g/dL (12-16); IMMATURE GRANULOCYTES 0.2 % (0-5); LYMPHOCYTE ABS# 1.64 10x3/uL (1.18-3.74); LYMPHOCYTES 36.3 % (15-50); MCH 30.5 pg (26.0-34.0); MCHC 33.3 g/dL (31.0-37.0); MCV 91.5 fL (80.0-100.0); MEAN PLATELET VOLUME 12.5 fL (7.4-10.4); MONOCYTES 13.9 % (2-11); PLATELET COUNT 163 10x3/uL (130-400); RBC 3.31 10x6/uL (4.00-5.40); RDW 17.1 % (11.5-14.5); WBC 4.5 10x3/uL (4.8-10.8)
[2021-02-11 07:46] LABS: ALBUMIN 1.5 g/dL (3.4-5.0); ANION GAP 10.9 mmol/L (8-16); BILIRUBIN - TOTAL 1.05 mg/dL (0.2-1.3); CALCIUM 8.6 mg/dL (8.5-10.1); CARBON DIOXIDE 25.4 mmol/L (21.0-32.0); CREATININE - SERUM 1.1 mg/dL (0.6-1.3); MAGNESIUM - SERUM 1.6 mg/dL (1.8-2.4); POTASSIUM - SERUM 4.3 mmol/L (3.5-5.1); PROTEIN - SERUM 6.2 g/dL (6.4-8.2)
[2021-02-11 08:44] VITALS: BP 116/74
--- NOTE | 2021-02-11 09:41 | NUR ---
PATIENT GETS IN BED TO TAKE A NAP.
--- NOTE | 2021-02-11 10:14 | MORECARE ---
CASE MANAGEMENT DISCHARGE SUMMARY PATIENT: NESSA FRENCH UNIT: [id number] ADM DATE: 02/02/21 AGE: 70 : 52 SEX: F ROOM/BED: D.2102 AUTHOR: SUSIE,DOC PHYSICIAN: REFERRING PHYSICIAN: BEAN PATEL MD DATE OF SERVICE: 02/11/21 Case Management Discharge Planning Summary COMMENTS ENTERED DATE: 02/11/21 10:00 CT COMMENT TYPE: Discharge Planning REVIEWER: Lona Ware CM received a call from patient's daughter, Flor [phone]. She states she gave Jennifer in Administration her POA and she plans on her mother going home with her. I called Jennifer in administration and she states "Flor was trying to email it to her, but she never received it." I asked the patient if she wanted to go home with Flor and patient gets upset and says no. States she wants to go home with Liannefarhan. I asked if she wanted rehab and she said "I thought I was in rehab." I informed her she was not in rehab and Odette wanted her to get rehab prior to her discharging home. I called Flor back and informed her that her mother was alert enough to tell me she did not want to go home with her. Flor is agreeable to a rehab as Brayden has asked. CM will continue to follow and assist with discharge planning/needs. ENTERED DATE: 02/10/21 16:40 CT COMMENT TYPE: Discharge Planning REVIEWER: Joe Oneill DAUGHTER DESIRES UPDATES. Received Phone call from patient's daughter, Sekou Faye ([phone]). Sekou would like to be notified of which SNF accepts her mother. Sekou stated that her mother will try to leave the SNF against medical advice like she did in [place], [place]. Sekou would like the name and contact information of the accepting SNF, so that she inquire about options for "flight" prevention. Sekou stated that her mother makes choices that are not wholly in her best interest. Sekou's Mailing Contact Information: [address], [place], [place]. CM will continue to follow and will assist as needed with dc plans/needs. ENTERED DATE: 02/09/21 16:19 CT COMMENT TYPE: Discharge Planning REVIEWER: Lona Ware CM faxed referral to [facility] for SNF. CM will continue to follow and assist with discharge planning/needs. ENTERED DATE: 02/09/21 15:37 CT COMMENT TYPE: Discharge Planning REVIEWER: Joe Oneill [facility]. Telephone conversation with patient's daughter and assumed Sekou HALE ([phone]) at 1153 on 09 February 2021 to complete DC plan and needs. Patient recently moved from another city and is temporarily living with family but will require more assistance than the current arrangement can provide. Sekou stated that she is in the process of getting a handicap accessible apartment for her mother and will arrange 24-hour caregiving through various arrangements with family members. Sekou stated that the apartment is not secured at this time but that is where her Mother will reside. CM informed Sekou that Physician staff are wary of discharging her mother without 24-hour care-giving arranged. CM team suggested alf as bridge to home until arrangements for the apartment and care could be arranged. Sekou is in agreement with plan and stated that she would like for her mother to go to a skilled bed on a temporary basis. Sekou's choices for SNF are [facility], [place], and [facility]. JEAN-PIERRE Telephonically signed and placed in chart. Sekou stated that her mother does not have a primary care physician at this time but she is in the process of getting her mother primary care. Sekou voiced no other needs at this time and is satisfied with DC plan. DC IMM telephonically explained, signed, and placed on chart per current Isolation protocols. CM will continue to follow and will assist as needed with dc plans/needs. DCP REVIEW SUMMARY ANTICIPATED D/C DATE: EXPECTED LOS : CASE STATUS: DCP Initiated INITIAL REVIEW: 02/02/2021 INITIAL REVIEWER: Joe Oneill FINAL DISCHARGE DISPOSITION: : FINAL REVIEWER: FINAL REVIEW DATE: DCP Focus Questions & Answers DCP Evaluation QUESTION: ANSWER Patient and/or caregiver agree upon recommended discharge plan? : Yes Family / Caregiver's ability to cope with chronic illness: : a. Adequate (ability to meet patient's medical needs, ensures patient attends medical appts.) Patient's current cognitive status: : Intermittently confused / memory changes Patient's current cognitive status: : *Oriented to person, place, situation, time and present Patient's ability to cope with chronic illness : d. No chronic illness Patient gives permission to discuss discharge plans with: (name, relationship and number) : SEKOU FAYE, DAUGHTER, Does the patient have the ability to pay for or attain post discharge needs / services? : Yes Functional screen assessment: : Can meet basic needs but may require referral for resources Functional screen assessment: : Unable to manage ADLs without immediate ongoing assistance Family / Caregiver's ability to cope with chronic illness: : a. Adequate (ability to meet patient's medical needs, ensures patient attends medical appts.) Physical Status: : Partial care dependence Physical Status: : Mobility impaired Is there a likelihood that the patient will require additional services to return to the preadmission environment? : Yes Living Arrangements: : Home with Extended Family Partial Dependence, assistance required for: : Ambulation / Mobility Patient with capacity for self-care or can be cared for in same environment as prior to hospitalization? : No Baseline cognitive status: : Intermittently confused / memory changes Baseline cognitive status: : *Oriented to person, place, situation, time and present Physical environment modification needed / anticipated for discharge: : No Medication Management: : Patient states can read and understand medication labels Medication Management: : Patient states can afford medications [facility] Does Patient have transportation to get home and to follow-up medical appointments when discharged from the hospital? : Yes Would patient like to participate in any Care Coordination programs (if applicable): : Not applicable Does the patient have electricity at home? : Yes Does the patient have running water in their house? : Yes Equipment in use: : Cane - Single Leg Mental health screen: : No mental health history DCP Re-evaluation QUESTION: ANSWER Would patient like to participate in any Care Coordination programs (if applicable): : Not applicable PATIENT: NESSA FRENCH ENCOUNTER: [id number] MEDICAL RECORD#: [id number] ADMISSION DATE: 02/02/2021 DISCHARGE DATE: ATTENDING MD: RAIN CRANDALL : AGE: 70 MARITAL STATUS: M DC PLAN ID: [id number] FACILITY: [facility] PRINTED ON: 02/11/21 10:14 CT All edits/amendments must be made on the electronic document DICTATION DATE: 02/11/21 1014 TURKEY PINNER: NANCY 02/11/21 1014 RPT#: [id number] DC DATE: STATUS: ADM IN [facility] [address] [place] [address] END OF REPORT
--- NOTE | 2021-02-11 12:10 | NUR ---
Nutrition Reassessment/Follow-up: Not eating well. Awaiting placement. Diet: Cardiac, Ensure TID PO intake: 25% x 3 (02/09) No new wt; last wt: 154.3# (02/05) Labs noted: Mg 1.6, Alb 1.5 Meds noted: Folate, Lactulose, Pepcid, electrolyte protocol -Nutrition needs unchanged; no new wt available. -Encourage PO intake and honor food preferences within diet restrictions. -Continue Ensure as medically feasible. -Pt may benefit from an appetite stimulant. -Need new wt; noted daily wts ordered. -RD will follow up within 3 days if pt still admitted.
--- NOTE | 2021-02-11 15:29 | NUR ---
OT NOTE: PT VERY LETHARGIC IN PM DURING ATTEMPT TO EVAL.. WILL RE ATTEMPT TOMORROW CANDACE BAKER, OTR/L
--- NOTE | 2021-02-11 16:32 | NUR ---
PATIENT HAS BEEN SLEEPING THE MAJORITY OF THE DAY. NURSE GOES IN TO TALK WITH PATIENT EVERY SO OFTEN TO SEE IF THERE'S ANYTHING SHE CAN GET PATIENT OR TO GET UP TO RESTROOM AND PATIENT TELLS NURSE TO GO AND LET HER GO BACK TO SLEEP.
--- NOTE | 2021-02-11 16:45 | NUR ---
NURSE IN ROOM WITH PATIENT TO CLEAN HER UP AND DO A LINEN CHANGE. PATIENT HAS BEEN SLEEPING ON HER LEFT SIDE MOST OF THE AFTERNOON. PATIENT'S LEFT EYE IS SWOLLEN AND CHEEK. NURSE ASKS PATIENT TO SMILE AND IT IS SYMMETRICAL, CAN FURNITURE UPHOLSTERER APPRENTICE NURSES HAND WITH SAME STRENGTH RIGHT HAND AND CAN LIFT LEGS UP ABOVE HER HEAD ALMOST WITHOUT ASSISTANCE. NURSE JUAN DIEGO RODRIGUEZ APRN . WAITING FOR CALL BACK.
--- NOTE | 2021-02-11 18:00 | NUR ---
NURSE CALLS SALLY TO COME TO LOOK AT PT'S FACE AFTER SLEEPING FOR A COUPLE HOURS ON HER LEFT SIDE. PATIENT'S LEFT EYE AND LEFT SIDE OF FACE ARE SWOLLEN. SAQIB ZAVALA STATES HE DOESN'T FEEL ITS ANYTHING TO WORRY ABOUT, BUT IF IT CONTINUES TO BE A PROBLEM, WE KNOW PATIENT'S BASELINE FROM RIGHT WHEN SHE WAKES UP. PATIENT HAS EQUAL GRAPS , CAN LIFT LEGS, AND SMILE SYMMETRICALLY
--- NOTE | 2021-02-12 00:25 | NUR ---
PT AWAKE EATING APPLE PIE LAYING IN BED. RR E/U. NO S/S OF DISTRESS AT THIS TIME. BED IS LOW CALL LIGHT WITHIN REACH DOOR OPEN. WILL CONTINUE TO MONITOR.
--- NOTE | 2021-02-12 00:38 | NUR ---
PT SITTING IN RECLINER IN HALLWAY. REFUSED TO STAY IN ROOM. PT VSS. LEFT EYE IS PUFFY AND SWOLLEN. NO PAIN WHEN TOUCHED. WILL MONITOR
[2021-02-12 00:41] VITALS: BP 118/72
[2021-02-12 03:45] VITALS: BP 131/57
--- NOTE | 2021-02-12 05:06 | NUR ---
I have reviewed this patient and I concur with the Shift Assessment completed by the Licensed Practical Nurse today this shift.
--- NOTE | 2021-02-12 05:47 | NUR ---
PT REFUSES TO HAVE LAB DRAW. VERY VOCAL AND AGGRESIVE ABOUT IT.
[2021-02-12 07:02] VITALS: BP 100/63
--- NOTE | 2021-02-12 08:00 | NUR ---
PO MEDS GIVEN TO PATIENT AT THIS TIME.PATIENT IS SITTING OUT IN THE HALLWAY. PATIENT DENIES NEEDS, BESIDES WANTING TO GO HOME. PATIENT HAS ALREADY TALKED WITH HER DAUGHTER THIS AM. DR DUFF CAME BY TO SEE PATIENT. CALL SWATI RIDLEY.
[2021-02-12 08:39] LABS: ALBUMIN 1.6 g/dL (3.4-5.0); ANION GAP 9.5 mmol/L (8-16); BILIRUBIN - TOTAL 1.17 mg/dL (0.2-1.3); CALCIUM 8.9 mg/dL (8.5-10.1); CARBON DIOXIDE 26.8 mmol/L (21.0-32.0); CREATININE - SERUM 1.3 mg/dL (0.6-1.3); MAGNESIUM - SERUM 1.9 mg/dL (1.8-2.4); POTASSIUM - SERUM 4.3 mmol/L (3.5-5.1); PROTEIN - SERUM 6.5 g/dL (6.4-8.2)
[2021-02-12 08:41] LABS: BASOPHILS 0.9 % (0-2); EOSINOPHILS 8.8 % (0-7); HEMATOCRIT 31.5 % (36.0-48.0); HEMOGLOBIN 10.5 g/dL (12-16); LYMPHOCYTE ABS# 1.67 10x3/uL (1.18-3.74); LYMPHOCYTES 37.8 % (15-50); MCH 30.9 pg (26.0-34.0); MCHC 33.3 g/dL (31.0-37.0); MCV 92.6 fL (80.0-100.0); MEAN PLATELET VOLUME 12.1 fL (7.4-10.4); NEUTROPHILS 38.5 % (40-80); PLATELET COUNT 178 10x3/uL (130-400); RDW 17.1 % (11.5-14.5); WBC 4.4 10x3/uL (4.8-10.8)
[2021-02-12 15:57] VITALS: BP 141/82
--- NOTE | 2021-02-12 16:21 | NUR ---
OT NOTE: PT WAS AGITATED AND REQUIRED EXTENSIVE VERBAL CUES. PT REQUIRED MIN A FOR SIT TO STANDS. PT COMPLETED FACE AND HAND HYGIENE WITH SETUP AND EXTENDED TIME. [id number] THANK YOU,JEFFREY BALTAZAR
[2021-02-12 20:00] VITALS: BP 108/55
--- NOTE | 2021-02-13 02:14 | NUR ---
PT SITTING IN WHEELCHAIR AT NURSES' DESK
[2021-02-13 05:03] VITALS: BP 124/64
[2021-02-13 08:44] LABS: ALBUMIN 1.6 g/dL (3.4-5.0); ANION GAP 10.8 mmol/L (8-16); BILIRUBIN - TOTAL 0.88 mg/dL (0.2-1.3); CALCIUM 8.4 mg/dL (8.5-10.1); CARBON DIOXIDE 25.4 mmol/L (21.0-32.0); CREATININE - SERUM 1.2 mg/dL (0.6-1.3); MAGNESIUM - SERUM 1.9 mg/dL (1.8-2.4); POTASSIUM - SERUM 4.2 mmol/L (3.5-5.1); PROTEIN - SERUM 6.5 g/dL (6.4-8.2)
[2021-02-13 09:03] LABS: BASOPHILS 0.8 % (0-2); EOSINOPHILS 8.6 % (0-7); HEMATOCRIT 31.4 % (36.0-48.0); HEMOGLOBIN 10.3 g/dL (12-16); IMMATURE GRANULOCYTES 0.3 % (0-5); LYMPHOCYTE ABS# 1.33 10x3/uL (1.18-3.74); LYMPHOCYTES 36.8 % (15-50); MCH 30.5 pg (26.0-34.0); MCHC 32.8 g/dL (31.0-37.0); MCV 92.9 fL (80.0-100.0); MEAN PLATELET VOLUME 11.8 fL (7.4-10.4); MONOCYTES 16.3 % (2-11); NEUTROPHIL ABS# 1.34 10x3/uL (1.56-6.13); NEUTROPHILS 37.2 % (40-80); PLATELET COUNT 204 10x3/uL (130-400); RBC 3.38 10x6/uL (4.00-5.40); RDW 17.1 % (11.5-14.5); WBC 3.6 10x3/uL (4.8-10.8)
--- NOTE | 2021-02-13 12:08 | NUR ---
Nutrition Follow-up: Pt confused. Poor PO intake reported since admit. Wt loss noted. Diet: Cardiac, Ensure TID Wt: 140# (02/12); 154.3# (02/05); 164.8# (02/03) Labs noted: Ca 8.4, Alb 1.6 Meds noted: Folate, Lactulose, Pepcid, electrolyte protocol *Using the following GLIM criteria, pt assessed with severe malnutrition: 1. Phenotypic -Wt loss -15% wt loss in <2 wks 2. Etiologic -Reduced nutritional intake -Overall poor PO intake reported since admit (x11 days) -Encourage PO intake and honor food preferences within diet restrictions. -Continue Ensure with meals. -Pt may benefit from an appetite stimulant. -If poor PO intake persists, MD may consider nutrition support. -RD follow-up: 02/15
--- NOTE | 2021-02-13 12:29 | NUR ---
PATIENT IS SLEEPING AT THIS TIME.
[2021-02-13] MEDS ORDERED: NICODERM CQ1 EAC3 TRANSDERM (14:50)
[2021-02-13] MEDS ORDERED: ELIQUIS5 MG PO ×2 (14:50→14:51)
[2021-02-13] MEDS ORDERED: CHRONULAC30 ML PO (14:52)
[2021-02-13] MEDS ORDERED: FOLIC ACID1 MG PO (14:52)
[2021-02-13] MEDS ORDERED: PEPCID PO (14:53)
--- NOTE | 2021-02-13 16:52 | NUR ---
OT NOTE: PT EXHIBITED SELF LIMITING BEHAVIORS. PT REQUIRED VERBAL CUES AND DIFFERENT THERAPY APPROACHES. PT COMPLETED BED MOB WITH MIN=MOD A. PT COMPLETED SITTING AT EOB WITH CGA. PT COMPLETED FACE AND HAND HYGIENE WITH MIN-MOD A. 0-206 THANK YOU,JEFFREY BALTAZAR
--- NOTE | 2021-02-13 17:45 | MORECARE ---
CASE MANAGEMENT DISCHARGE SUMMARY PATIENT: NESSA FRENCH UNIT: [id number] ADM DATE: 02/02/21 AGE: 70 : 54 SEX: F ROOM/BED: D.2102 AUTHOR: SUSIE,DOC PHYSICIAN: REFERRING PHYSICIAN: BEAN PATEL MD DATE OF SERVICE: 02/13/21 Case Management Discharge Planning Summary COMMENTS ENTERED DATE: 02/13/21 17:20 CT COMMENT TYPE: Discharge Planning REVIEWER: Sarahi Clements CM received a call from [facility] and she stated that patient was out of network. CM called patient's insurance company and after speaking to several representatives. CM was told that patient's insurance is out of [place] and that her plan doesn't cover any facilities in [place]. CM called daughter Jaz and explained that the patient didn't have any coverage in [place]. Jaz stated that she understood and will get her insurance switched once she is discharged. CM explained that patient is ready for discharge and Jaz stated that she would have someone pick her up today. CM also checked on HHS available for patient and she doesn't have coverage for HHS in [place] nor does she have a PCP. Patient will need to have a PCP established and then they can order home health for her. CM will continue to follow and assist as needed. D/C IMM completed. ENTERED DATE: 02/11/21 10:00 CT COMMENT TYPE: Discharge Planning REVIEWER: Lona Ware CM received a call from patient's daughter, Flor [phone]. She states she gave Jennifer in Administration her POA and she plans on her mother going home with her. I called Jennifer in administration and she states "Flor was trying to email it to her, but she never received it." I asked the patient if she wanted to go home with Flor and patient gets upset and says no. States she wants to go home with Odette. I asked if she wanted rehab and she said "I thought I was in rehab." I informed her she was not in rehab and Odette wanted her to get rehab prior to her discharging home. I called Flor back and informed her that her mother was alert enough to tell me she did not want to go home with her. Flor is agreeable to a rehab as Brayden has asked. CM will continue to follow and assist with discharge planning/needs. ENTERED DATE: 02/10/21 16:40 CT COMMENT TYPE: Discharge Planning REVIEWER: Joe Oneill DAUGHTER DESIRES UPDATES. Received Phone call from patient's daughter, Rodolfo Faye ([phone]). Rodolfo would like to be notified of which SNF accepts her mother. Rodolfo stated that her mother will try to leave the SNF against medical advice like she did in [place], [place]. Rodolfo would like the name and contact information of the accepting SNF, so that she inquire about options for "flight" prevention. Rodolfo stated that her mother makes choices that are not wholly in her best interest. Rodolfo's Mailing Contact Information: [address] [place] [address], [place], [place]. CM will continue to follow and will assist as needed with dc plans/needs. ENTERED DATE: 02/09/21 16:19 CT COMMENT TYPE: Discharge Planning REVIEWER: Lona Ware CM faxed referral to [facility] for SNF. CM will continue to follow and assist with discharge planning/needs. ENTERED DATE: 02/09/21 15:37 CT COMMENT TYPE: Discharge Planning REVIEWER: Joe Oneill LONGTERM. Telephone conversation with patient's daughter and assumed POA Rodolfo Faye ([phone]) at 1153 on 09 February 2021 to complete DC plan and needs. Patient recently moved from another city and is temporarily living with family but will require more assistance than the current arrangement can provide. Rodolfo stated that she is in the process of getting a handicap accessible apartment for her mother and will arrange 24-hour caregiving through various arrangements with family members. Rodolfo stated that the apartment is not secured at this time but that is where her Mother will reside. CM informed Rodolfo that Physician staff are wary of discharging her mother without 24-hour care-giving arranged. CM team suggested [facility] as bridge to home until arrangements for the apartment and care could be arranged. Rodolfo is in agreement with plan and stated that she would like for her mother to go to a skilled bed on a temporary basis. Rodolfo's choices for SNF are [facility], [facility], and [facility]. JEAN-PIERRE Telephonically signed and placed in chart. Rodolfo stated that her mother does not have a primary care physician at this time but she is in the process of getting her mother primary care. Rodolfo voiced no other needs at this time and is satisfied with DC plan. DC IMM telephonically explained, signed, and placed on chart per current Isolation protocols. CM will continue to follow and will assist as needed with dc plans/needs. DCP REVIEW SUMMARY ANTICIPATED D/C DATE: EXPECTED LOS : CASE STATUS: DCP Initiated INITIAL REVIEW: 02/02/2021 INITIAL REVIEWER: Joe Oneill FINAL DISCHARGE DISPOSITION: : FINAL REVIEWER: FINAL REVIEW DATE: DCP Focus Questions & Answers DCP Evaluation QUESTION: ANSWER Patient and/or caregiver agree upon recommended discharge plan? : Yes Family / Caregiver's ability to cope with chronic illness: : a. Adequate (ability to meet patient's medical needs, ensures patient attends medical appts.) Patient's current cognitive status: : Intermittently confused / memory changes Patient's current cognitive status: : *Oriented to person, place, situation, time and present Patient's ability to cope with chronic illness : d. No chronic illness Patient gives permission to discuss discharge plans with: (name, relationship and number) : RODOLFO FAYE, DAUGHTER, Does the patient have the ability to pay for or attain post discharge needs / services? : Yes Functional screen assessment: : Can meet basic needs but may require referral for resources Functional screen assessment: : Unable to manage ADLs without immediate ongoing assistance Family / Caregiver's ability to cope with chronic illness: : a. Adequate (ability to meet patient's medical needs, ensures patient attends medical appts.) Physical Status: : Partial care dependence Physical Status: : Mobility impaired Is there a likelihood that the patient will require additional services to return to the preadmission environment? : Yes Living Arrangements: : Home with Extended Family Partial Dependence, assistance required for: : Ambulation / Mobility Patient with capacity for self-care or can be cared for in same environment as prior to hospitalization? : No Baseline cognitive status: : Intermittently confused / memory changes Baseline cognitive status: : *Oriented to person, place, situation, time and present Physical environment modification needed / anticipated for discharge: : No Medication Management: : Patient states can read and understand medication labels Medication Management: : Patient states can afford medications [facility] name[facility] Does Patient have transportation to get home and to follow-up medical appointments when discharged from the hospital? : Yes Would patient like to participate in any Care Coordination programs (if applicable): : Not applicable Does the patient have electricity at home? : Yes Does the patient have running water in their house? : Yes Equipment in use: : Cane - Single Leg Mental health screen: : No mental health history DCP Re-evaluation QUESTION: ANSWER Would patient like to participate in any Care Coordination programs (if applicable): : Not applicable PATIENT: NESSA FRENCH ENCOUNTER: [id number] MEDICAL RECORD#: [id number] ADMISSION DATE: 02/02/2021 DISCHARGE DATE: ATTENDING MD: RAIN CRANDALL : AGE: 70 MARITAL STATUS: M DC PLAN ID: [id number] FACILITY: [facility] PRINTED ON: 02/13/21 17:45 CT All edits/amendments must be made on the electronic document DICTATION DATE: 02/13/211743 COAL FEEDER OPERATOR: NANCY 02/13/211743 RPT#: [id number] DC DATE: STATUS: ADM IN [facility] [address] [place] [address] END OF REPORT
--- NOTE | 2021-02-13 18:08 | MORECARE ---
CASE MANAGEMENT DISCHARGE SUMMARY PATIENT: NESSA FRENCH UNIT: [id number] ADM DATE: 02/02/21 AGE: 70 : 54 SEX: F ROOM/BED: D.2102 AUTHOR: SUSIE,DOC PHYSICIAN: REFERRING PHYSICIAN: BEAN PATEL MD DATE OF SERVICE: 02/13/21 Case Management Discharge Planning Summary COMMENTS ENTERED DATE: 02/13/21 17:20 CT COMMENT TYPE: Discharge Planning REVIEWER: Sarahi Clements CM received a call from [facility] and she stated that patient was out of network. CM called patient's insurance company and after speaking to several representatives. CM was told that patient's insurance is out of [place] and that her plan doesn't cover any facilities in [place]. CM called daughter Jaz and explained that the patient didn't have any coverage in [place]. Jaz stated that she understood and will get her insurance switched once she is discharged. CM explained that patient is ready for discharge and Jaz stated that she would have someone pick her up today. CM also checked on HHS available for patient and she doesn't have coverage for HHS in [place] nor does she have a PCP. Patient will need to have a PCP established and then they can order home health for her. CM will continue to follow and assist as needed. D/C IMM completed. ENTERED DATE: 02/11/21 10:00 CT COMMENT TYPE: Discharge Planning REVIEWER: Lona Ware CM received a call from patient's daughter, Flor [phone]. She states she gave Jennifer in Administration her POA and she plans on her mother going home with her. I called Jennifer in administration and she states "Flor was trying to email it to her, but she never received it." I asked the patient if she wanted to go home with Flor and patient gets upset and says no. States she wants to go home with Odette. I asked if she wanted rehab and she said "I thought I was in rehab." I informed her she was not in rehab and Odette wanted her to get rehab prior to her discharging home. I called Flor back and informed her that her mother was alert enough to tell me she did not want to go home with her. Flor is agreeable to a rehab as Brayden has asked. CM will continue to follow and assist with discharge planning/needs. ENTERED DATE: 02/10/21 16:40 CT COMMENT TYPE: Discharge Planning REVIEWER: Joe Oneill DAUGHTER DESIRES UPDATES. Received Phone call from patient's daughter, Rodolfo Faye ([phone]). Rodolfo would like to be notified of which SNF accepts her mother. Rodolfo stated that her mother will try to leave the SNF against medical advice like she did in [place], [place]. Rodolfo would like the name and contact information of the accepting SNF, so that she inquire about options for "flight" prevention. Rodolfo stated that her mother makes choices that are not wholly in her best interest. Rodolfo's Mailing Contact Information: [address] [place] [address], [place], [place]. CM will continue to follow and will assist as needed with dc plans/needs. ENTERED DATE: 02/09/21 16:19 CT COMMENT TYPE: Discharge Planning REVIEWER: Lona Ware CM faxed referral to [facility] for SNF. CM will continue to follow and assist with discharge planning/needs. ENTERED DATE: 02/09/21 15:37 CT COMMENT TYPE: Discharge Planning REVIEWER: Joe Oneill DETENTION. Telephone conversation with patient's daughter and assumed POA Rodolfo Faye ([phone]) at 1153 on 09 February 2021 to complete DC plan and needs. Patient recently moved from another city and is temporarily living with family but will require more assistance than the current arrangement can provide. Rodolfo stated that she is in the process of getting a handicap accessible apartment for her mother and will arrange 24-hour caregiving through various arrangements with family members. Rodolfo stated that the apartment is not secured at this time but that is where her Mother will reside. CM informed Rodolfo that Physician staff are wary of discharging her mother without 24-hour care-giving arranged. CM team suggested retirement as bridge to home until arrangements for the apartment and care could be arranged. Rodolfo is in agreement with plan and stated that she would like for her mother to go to a skilled bed on a temporary basis. Rodolfo's choices for SNF are [facility], [facility], and [facility]. JEAN-PIERRE Telephonically signed and placed in chart. Rodolfo stated that her mother does not have a primary care physician at this time but she is in the process of getting her mother primary care. Rodolfo voiced no other needs at this time and is satisfied with DC plan. DC IMM telephonically explained, signed, and placed on chart per current Isolation protocols. CM will continue to follow and will assist as needed with dc plans/needs. DCP REVIEW SUMMARY ANTICIPATED D/C DATE: EXPECTED LOS : CASE STATUS: DCP Initiated INITIAL REVIEW: 02/02/2021 INITIAL REVIEWER: Joe Oneill FINAL DISCHARGE DISPOSITION: 01 : Home or Self Care (Routine Discharge) FINAL REVIEWER: Sarahi Clements FINAL REVIEW DATE: 02/13/2021 DCP Focus Questions & Answers DCP Evaluation QUESTION: ANSWER Patient and/or caregiver agree upon recommended discharge plan? : Yes Family / Caregiver's ability to cope with chronic illness: : a. Adequate (ability to meet patient's medical needs, ensures patient attends medical appts.) Patient's current cognitive status: : Intermittently confused / memory changes Patient's current cognitive status: : *Oriented to person, place, situation, time and present Patient's ability to cope with chronic illness : d. No chronic illness Patient gives permission to discuss discharge plans with: (name, relationship and number) : RODOLFO FAYE, DAUGHTER, Does the patient have the ability to pay for or attain post discharge needs / services? : Yes Functional screen assessment: : Can meet basic needs but may require referral for resources Functional screen assessment: : Unable to manage ADLs without immediate ongoing assistance Family / Caregiver's ability to cope with chronic illness: : a. Adequate (ability to meet patient's medical needs, ensures patient attends medical appts.) Physical Status: : Partial care dependence Physical Status: : Mobility impaired Is there a likelihood that the patient will require additional services to return to the preadmission environment? : Yes Living Arrangements: : Home with Extended Family Partial Dependence, assistance required for: : Ambulation / Mobility Patient with capacity for self-care or can be cared for in same environment as prior to hospitalization? : No Baseline cognitive status: : Intermittently confused / memory changes Baseline cognitive status: : *Oriented to person, place, situation, time and present Physical environment modification needed / anticipated for discharge: : No Medication Management: : Patient states can read and understand medication labels Medication Management: : Patient states can afford medications [facility]): [facility] Does Patient have transportation to get home and to follow-up medical appointments when discharged from the hospital? : Yes Would patient like to participate in any Care Coordination programs (if applicable): : Not applicable Does the patient have electricity at home? : Yes Does the patient have running water in their house? : Yes Equipment in use: : Cane - Single Leg Mental health screen: : No mental health history DCP Re-evaluation QUESTION: ANSWER Would patient like to participate in any Care Coordination programs (if applicable): : Not applicable PATIENT: NESSA FRENCH ENCOUNTER: [id number] MEDICAL RECORD#: [id number] ADMISSION DATE: 02/02/2021 DISCHARGE DATE: ATTENDING MD: RAIN CRANDALL : AGE: 70 MARITAL STATUS: M DC PLAN ID: [id number] FACILITY: [facility] PRINTED ON: 02/13/21 18:08 CT All edits/amendments must be made on the electronic document DICTATION DATE: 02/13/211807 CRUSHER TENDER: NANCY 02/13/211807 RPT#: [id number] DC DATE: STATUS: ADM IN [facility] [address] [place] [address] END OF REPORT
--- NOTE | 2021-02-13 19:28 | NUR ---
PT RESTING WITH EYES CLOSED, RESP QUIET, NO DISTRESS NOTED, LEFT UNDISTURBED AT THIS TIME
[2021-02-13 20:00] VITALS: BP 98/65
--- NOTE | 2021-02-13 21:34 | NUR ---
PT RESTING WITH EYES CLOSED, AROUSES TO SOFT VERBAL STIMULATION, ASSESSMENT PER FLOW SHEET, ADM 2100 MEDS PER MD ORDERS, SEE EMAR, WITH FRESH H20, PT DENIES NEEDS OR PAIN, BED IN LOW POSITION, SIDE RAILS X 2, CALL LIGHT IN REACH
--- NOTE | 2021-02-14 00:38 | NUR ---
PT RESTING WITH EYES CLOSED, RESP QUIET, NO DISTRESS NOTED, LEFT UNDISTURBED AT THIS TIME
--- NOTE | 2021-02-14 02:25 | NUR ---
PT RESTING WITH EYES CLOSED, RESP QUIET, NO DISTRESS NOTED, LEFT UNDISTURBED AT THIS TIME, BED IN LOW POSITION, SIDE RAILS X 2, CALL LIGHT IN REACH
--- NOTE | 2021-02-14 03:33 | NUR ---
PT AWAKE, PT INCONT OF BLADDER, PT CLEANED UP PER THIS RN AND CALIN MANSFIELD, WITH WET WIPES, COMPLETE BEDDING CHANGE DONE, GOWN APPLIED, PT DENIES NEEDS OR PAIN AT THIS TIME, BED IN LOW POSITION, SIDE RAILS X 2, CALL LIGHT IN REACH
[2021-02-14 03:47] VITALS: BP 127/79
--- NOTE | 2021-02-14 03:49 | NUR ---
PT OUT TO RECLINER IN [place] PER CALIN STUART
--- NOTE | 2021-02-14 04:28 | NUR ---
PT IN WC AT THIS TIME
--- NOTE | 2021-02-14 05:37 | NUR ---
PT CONTINUES IN , LAB HERE TO DRAW AM LABS, PT REFUSES TO HAVE BLOOD DRAW THIS MORNING
--- NOTE | 2021-02-14 10:37 | NUR ---
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
--- NOTE | 2021-02-15 19:45 | MORECARE ---
CASE MANAGEMENT DISCHARGE SUMMARY PATIENT: NESSA FRENCH UNIT: [id number] ADM DATE: 02/02/21 AGE: 70 : 52 SEX: F ROOM/BED: D.2102 AUTHOR: SUSIE,DOC PHYSICIAN: REFERRING PHYSICIAN: BEAN PATEL MD DATE OF SERVICE: 02/15/21 Case Management Discharge Planning Summary COMMENTS ENTERED DATE: 02/13/21 17:20 CT COMMENT TYPE: Discharge Planning REVIEWER: Sarahi Clements CM received a call from [place] and she stated that patient was out of network. CM called patient's insurance company and after speaking to several representatives. CM was told that patient's insurance is out of [place] and that her plan doesn't cover any facilities in [place]. CM called daughter Jaz and explained that the patient didn't have any coverage in [place]. Jaz stated that she understood and will get her insurance switched once she is discharged. CM explained that patient is ready for discharge and Jaz stated that she would have someone pick her up today. CM also checked on HHS available for patient and she doesn't have coverage for HHS in [place] nor does she have a PCP. Patient will need to have a PCP established and then they can order home health for her. CM will continue to follow and assist as needed. D/C IMM completed. ENTERED DATE: 02/11/21 10:00 CT COMMENT TYPE: Discharge Planning REVIEWER: Lona Ware CM received a call from patient's daughter, Flor [phone]. She states she gave Jennifer in Administration her POA and she plans on her mother going home with her. I called Jennifer in administration and she states "Flor was trying to email it to her, but she never received it." I asked the patient if she wanted to go home with Flor and patient gets upset and says no. States she wants to go home with Odette. I asked if she wanted rehab and she said "I thought I was in rehab." I informed her she was not in rehab and Odette wanted her to get rehab prior to her discharging home. I called Flor back and informed her that her mother was alert enough to tell me she did not want to go home with her. Flor is agreeable to a rehab as Brayden has asked. CM will continue to follow and assist with discharge planning/needs. ENTERED DATE: 02/10/21 16:40 CT COMMENT TYPE: Discharge Planning REVIEWER: Joe Oneill DAUGHTER DESIRES UPDATES. Received Phone call from patient's daughter, Rodolfo Faye ([phone]). Rodolfo would like to be notified of which SNF accepts her mother. Rodolfo stated that her mother will try to leave the SNF against medical advice like she did in [place], [place]. Rodolfo would like the name and contact information of the accepting SNF, so that she inquire about options for "flight" prevention. Rodolfo stated that her mother makes choices that are not wholly in her best interest. Rodolfo's Mailing Contact Information: [address] [place] [address], [place], [place]. CM will continue to follow and will assist as needed with dc plans/needs. ENTERED DATE: 02/09/21 16:19 CT COMMENT TYPE: Discharge Planning REVIEWER: Lona Ware CM faxed referral to [facility] for SNF. CM will continue to follow and assist with discharge planning/needs. ENTERED DATE: 02/09/21 15:37 CT COMMENT TYPE: Discharge Planning REVIEWER: Joe Oneill USP. Telephone conversation with patient's daughter and assumed POA Rodolfo Faye ([phone]) at 1153 on 09 February 2021 to complete DC plan and needs. Patient recently moved from another city and is temporarily living with family but will require more assistance than the current arrangement can provide. Rodolfo stated that she is in the process of getting a handicap accessible apartment for her mother and will arrange 24-hour caregiving through various arrangements with family members. Rodolfo stated that the apartment is not secured at this time but that is where her Mother will reside. CM informed Rodolfo that Physician staff are wary of discharging her mother without 24-hour care-giving arranged. CM team suggested custodial as bridge to home until arrangements for the apartment and care could be arranged. Rodolfo is in agreement with plan and stated that she would like for her mother to go to a skilled bed on a temporary basis. Rodolfo's choices for SNF are [facility], [facility], and [facility]. JEAN-PIERRE Telephonically signed and placed in chart. Rodolfo stated that her mother does not have a primary care physician at this time but she is in the process of getting her mother primary care. Rodolfo voiced no other needs at this time and is satisfied with DC plan. DC IMM telephonically explained, signed, and placed on chart per current Isolation protocols. CM will continue to follow and will assist as needed with dc plans/needs. DCP REVIEW SUMMARY ANTICIPATED D/C DATE: EXPECTED LOS : CASE STATUS: DCP Initiated INITIAL REVIEW: 02/02/2021 INITIAL REVIEWER: Joe Oneill FINAL DISCHARGE DISPOSITION: 01 : Home or Self Care (Routine Discharge) FINAL REVIEWER: Sarahi Clements FINAL REVIEW DATE: 02/13/2021 DCP Focus Questions & Answers DCP Evaluation QUESTION: ANSWER Patient and/or caregiver agree upon recommended discharge plan? : Yes Patient's current cognitive status: : *Oriented to person, place, situation, time and present Patient's current cognitive status: : Intermittently confused / memory changes Patient's ability to cope with chronic illness : d. No chronic illness Patient gives permission to discuss discharge plans with: (name, relationship and number) : RODOLFO FAYE, DAUGHTER, Family / Caregiver's ability to cope with chronic illness: : a. Adequate (ability to meet patient's medical needs, ensures patient attends medical appts.) Does the patient have the ability to pay for or attain post discharge needs / services? : Yes Functional screen assessment: : Unable to manage ADLs without immediate ongoing assistance Functional screen assessment: : Can meet basic needs but may require referral for resources Family / Caregiver's ability to cope with chronic illness: : a. Adequate (ability to meet patient's medical needs, ensures patient attends medical appts.) Physical Status: : Mobility impaired Physical Status: : Partial care dependence Is there a likelihood that the patient will require additional services to return to the preadmission environment? : Yes Living Arrangements: : Home with Extended Family Partial Dependence, assistance required for: : Ambulation / Mobility Patient with capacity for self-care or can be cared for in same environment as prior to hospitalization? : No Baseline cognitive status: : *Oriented to person, place, situation, time and present Baseline cognitive status: : Intermittently confused / memory changes Physical environment modification needed / anticipated for discharge: : No Medication Management: : Patient states can afford medications Medication Management: : Patient states can read and understand medication labels [facility]acy name(s): : [facility] Does Patient have transportation to get home and to follow-up medical appointments when discharged from the hospital? : Yes Would patient like to participate in any Care Coordination programs (if applicable): : Not applicable Does the patient have electricity at home? : Yes Does the patient have running water in their house? : Yes Equipment in use: : Cane - Single Leg Mental health screen: : No mental health history DCP Re-evaluation QUESTION: ANSWER Would patient like to participate in any Care Coordination programs (if applicable): : Not applicable PATIENT: NESSA FRENCH ENCOUNTER: [id number] MEDICAL RECORD#: [id number] ADMISSION DATE: 02/02/2021 DISCHARGE DATE: 02/14/2021 ATTENDING MD: RAIN CRANDALL : AGE: 70 MARITAL STATUS: M DC PLAN ID: [id number] FACILITY: [facility] PRINTED ON: 02/15/21 19:45 CT All edits/amendments must be made on the electronic document DICTATION DATE: 02/15/211944 AIR DRILL OPERATOR: NANCY 02/15/211944 RPT#: [id number] DC DATE:02/14/21 STATUS: DIS IN [facility] [address] [place] [address] END OF REPORT
--- NOTE | 2021-02-16 12:57 | EC ---
PATIENT:NESSA FRENCH DATE OF SERVICE: 02/02/21 SEX: F MEDICAL RECORD: [id number] DATE OF : 54 LOCATION:D.M2 D.210 AGE OF PATIENT: 70 ADMISSION DATE: 02/02/21 REFERRING PHYSICIAN: INTERPRETING PHYSICIAN: WALLACE VELASQUEZ MD ECHOCARDIOGRAM REPORT ECHO CHARGES 4 ECHO COMPLETE Date: 02/03/21 CLINICAL DIAGNOSIS: HTN/ELEVATED TCO-MEO-VJVLT/ ABN LFT, ASSESS EF ECHOCARDIOGRAPHIC MEASUREMENTS (adult normal given) AC root (d.<3.7cm) 3.5 cm LV Septum d (<1.2 cm> 1.1 cm Valve Excursion 1.6 cm LV Septum (systole) 1.2 cm Left Atria (s.<4.0cm> 3.3 cm LVPW d(<1.2cm) 1.1 cm RV (d.<2.3cm) 3.5 cm LVPW (sytole) 1.4 cm LV diastole(<5.6CM) 4.1 cm MV E-F(>70mm/sec) cm LV systole 2.6 cm LVOT Diameter 2.1 cm MV exc.(>10mm) 1.3 cm Est.ejection fraction (50-75%) % DOPPLER: LVIT cm/sec A 78.0 cm/sec E 102.0 cm/sec LA cm/sec RVSP 37 mmHg LVOT 115 cm/sec AOP1/2T m/s Asc. Ao 175 cm/sec RVOT 71 cm/sec RA cm/sec PA 115 cm/sec AV Gradient Peak 12.25mmHg AV Mean 6.36 mmHg AV Area 2.0 cm MV Gradient Peak 8.42 mmHg MV Mean 2.40 mmHg MV Area cm COMMENTS: Rejector: 2 TIGIST HAND Aerial Photograph Interpreter: 5 Dr. Velasquez TAPE# PACS Pericardial Effusion N DATE OF SERVICE: CLINICAL INDICATION: Hypertension, edema. INTERPRETATION: Normal left ventricular chamber size and contractile function. Ejection fraction is 60%. Left atrial chamber appears normal. Right atrium and right ventricular chamber size and function appears normal. Aortic valve appears normal. Trace to mild aortic regurgitation. No aortic stenosis. Mitral valve appears normal. Trace mitral regurgitation. Tricuspid valve appears normal. Trace to mild tricuspid regurgitation. Pulmonic valve appears ECHOCARDIOGRAM REPORT [id number] NESSA FRENCH normal. No pulmonary regurgitation. No pericardial effusion visualized. IMPRESSION: Normal left ventricular chamber size and contractile function, ejection fraction 60%. TRANSINT:[id number] Voice Confirmation ID: [id number] DOCUMENT ID: [id number] WALLACE VELASQUEZ MD at 1257 CC: [id number] DICTATION DATE: 02/03/21 1443 GEOSCIENCES ASSOCIATE PROFESSOR: 02/03/212200 DIS IN 02/14/21 [place] [id number] [place] [id number]
== END 2021-02-14 10:38 | disposition home or self-care (01) | DRG 299 ==
LOC: D.ER 18:38 → D.M2 21:06
PROVIDERS: Emergency Medicine; Family Medicine; Internal Medicine Gastroenterology; Internal Medicine Hematology & Oncology; ADMIT Emergency Medicine; ATTEND Emergency Medicine
DX: I82.433 Acute embolism and thrombosis of popliteal vein, bilateral (principal); G93.41 Metabolic encephalopathy; N17.9 Acute kidney failure, unspecified; I82.413 Acute embolism and thrombosis of femoral vein, bilateral; Z20.822 Contact with and (suspected) exposure to COVID-19; D52.9 Folate deficiency anemia, unspecified; E80.6 Other disorders of bilirubin metabolism; K76.0 Fatty (change of) liver, not elsewhere classified; K80.20 Calculus of gallbladder without cholecystitis without obstruction; I10 Essential (primary) hypertension; F20.9 Schizophrenia, unspecified; F43.29 Adjustment disorder with other symptoms

== ENCOUNTER 2021-02-28 20:49 | Emergency (ER) | payer MEDICARE ==
[~2021-02-28] VITALS: Ht 154.9 cm; Wt 65.9 kg
[~2021-02-28 20:49] MED LIST: CHRONULAC30 ML PO; ELIQUIS5 MG PO; FOLIC ACID1 MG PO; HYDROCHLOROTHIA25 MG PO; NICODERM CQ1 EAC3 TRANSDERM; NORMODYNE / TR100 MG; NORVASC5 MG PO; PEPCID PO; REMERON15 MG PO; TENORMIN25 MG PO
[2021-02-28 20:52] VITALS: Ht 154.9 cm; Wt 65.9 kg
[2021-02-28] MEDS ORDERED: NORVASC5 MG PO (21:02)
[2021-02-28 22:06] VITALS: BP 141/90
== END 2021-02-28 22:06 | disposition home or self-care (01) ==
LOC: D.ER 20:49
DX: S01.01XA Laceration without foreign body of scalp, initial encounter (principal); S00.93XA Contusion of unspecified part of head, initial encounter; I10 Essential (primary) hypertension; W19.XXXA Unspecified fall, initial encounter; Y93.9 Activity, unspecified; Y92.9 Unspecified place or not applicable

== ENCOUNTER 2021-03-14 22:20 | Inpatient (IN) | payer MEDICARE, MEDICAID ==
[~2021-03-14] VITALS: Ht 154.9 cm; Wt 69.6 kg
[2021-03-14 23:01] VITALS: BP 109/77
[2021-03-14 23:17] LABS: BASOPHILS 0 % (0-2); EOSINOPHILS 0 % (0-7); HEMATOCRIT 25.3 % (36.0-48.0); HEMOGLOBIN 8.8 g/dL (12-16); IMMATURE GRANULOCYTES 0.2 % (0-5); LYMPHOCYTE ABS# 0.41 10x3/uL (1.18-3.74); MCH 30.1 pg (26.0-34.0); MCHC 34.8 g/dL (31.0-37.0); MCV 86.6 fL (80.0-100.0); MEAN PLATELET VOLUME 10.8 fL (7.4-10.4); MONOCYTES 9.4 % (2-11); NEUTROPHIL ABS# 4.86 10x3/uL (1.56-6.13); NEUTROPHILS 83.4 % (40-80); PLATELET COUNT 183 10x3/uL (130-400); RBC 2.92 10x6/uL (4.00-5.40); RDW 16.5 % (11.5-14.5); WBC 5.8 10x3/uL (4.8-10.8)
[2021-03-14 23:31] LABS: INR 1.26 (0.85-1.17); PROTIME 14.7 SECONDS (11.6-15.0)
[2021-03-14 23:32] LABS: CALC OSMOLALITY 279 mosm/kg (275-300); CALCIUM 7.7 mg/dL (8.5-10.1); CARBON DIOXIDE 21.2 mmol/L (21.0-32.0); CHLORIDE - SERUM 108 mmol/L (98-107); CREATININE - SERUM 1.2 mg/dL (0.6-1.3); GLUCOSE 104 mg/dL (74-106); POTASSIUM - SERUM 3.6 mmol/L (3.5-5.1); SODIUM 139 mmol/L (136-145); UREA NITROGEN 18 mg/dL (7-18); eGFR NON AFRICAN AMERICAN 47 mL/min (90-120)
[2021-03-14 23:49] LABS: ALBUMIN 1.4 g/dL (3.4-5.0); ALKALINE PHOSPHATASE 108 U/L (30-120); ALT (SGPT) 26 U/L (10-68); BILIRUBIN - TOTAL 1.44 mg/dL (0.2-1.3); CREATINE KINASE 27 UL (21-215); LIPASE 34 U/L (73-393); PRO BNP 3070 pg/mL (0-125); PROTEIN - SERUM 5.8 g/dL (6.4-8.2); TROPONIN-I < 0.017 ng/mL (0.000-0.060)
[2021-03-14 23:50] LABS: BILIRUBIN NEGATIVE (NEGATIVE); KETONE NEGATIVE (NEGATIVE); NITRITE NEGATIVE (NEGATIVE); UROBILINOGEN NORMAL mg/dL (< 2)
[2021-03-14 23:52] LABS: BACTERIA FEW HPF (NONE SEEN); SQUAMOUS EPITHELIAL 0-5 HPF (0-4); WHITE CELLS - URINE 0-5 HPF (0-4)
[2021-03-14 23:53] LABS: UDS - AMPHET NEGATIVE QUAL (NEGATIVE); UDS - BARB NEGATIVE QUAL (NEGATIVE); UDS - BENZO NEGATIVE QUAL (NEGATIVE); UDS - COCAINE NEGATIVE QUAL (NEGATIVE); UDS - OPIATE NEGATIVE QUAL (NEGATIVE); UDS - PCP NEGATIVE QUAL (NEGATIVE); UDS - THC NEGATIVE QUAL (NEGATIVE)
[2021-03-15] VITALS (39 sets, daily range): BP systolic 62–146; BP diastolic 28–96; Ht 154.9 cm; Wt 69.6 kg
[2021-03-15 04:59] LABS: BASOPHILS 0 % (0-2); EOSINOPHILS 0 % (0-7); HEMATOCRIT 23.6 % (36.0-48.0); IMMATURE GRANULOCYTES 0.2 % (0-5); LYMPHOCYTE ABS# 0.43 10x3/uL (1.18-3.74); LYMPHOCYTES 8.7 % (15-50); MCH 29.9 pg (26.0-34.0); MCHC 33.9 g/dL (31.0-37.0); MCV 88.1 fL (80.0-100.0); MEAN PLATELET VOLUME 10.9 fL (7.4-10.4); MONOCYTES 6.9 % (2-11); NEUTROPHIL ABS# 4.17 10x3/uL (1.56-6.13); NEUTROPHILS 84.2 % (40-80); PLATELET COUNT 169 10x3/uL (130-400); RBC 2.68 10x6/uL (4.00-5.40)
[2021-03-15 05:39] LABS: ALBUMIN 1.2 g/dL (3.4-5.0); ANION GAP 12.4 mmol/L (8-16); BILIRUBIN - TOTAL 1.12 mg/dL (0.2-1.3); CALCIUM 7.6 mg/dL (8.5-10.1); CARBON DIOXIDE 23.5 mmol/L (21.0-32.0); CREATININE - SERUM 1.4 mg/dL (0.6-1.3); MAGNESIUM - SERUM 1.3 mg/dL (1.8-2.4); PHOSPHOROUS 4.1 mg/dL (2.5-4.9); POTASSIUM - SERUM 3.9 mmol/L (3.5-5.1); PROTEIN - SERUM 5.3 g/dL (6.4-8.2)
[2021-03-15 16:10] LABS: HEMATOCRIT 25.7 % (36.0-48.0); HEMOGLOBIN 8.5 g/dL (12-16)
[2021-03-15 19:45] LABS: HEMATOCRIT 25.7 % (36.0-48.0); HEMOGLOBIN 8.7 g/dL (12-16)
--- NOTE | 2021-03-15 19:50 | NUR ---
REC'D REPORT AND ASSUMED CARE. INITIAL ASSESSMENT COMPLETED AND RECORDED PER FLOW SHEET. UNABLE TO UNDERSTAND HER SPEECH. LEVOPHED INFUSING ATTEMPTING TO TITRATE DOWN BUT NO SUCCESS. WILL CONT TO MONITOR.
[2021-03-16] VITALS (77 sets, daily range): BP systolic 50–126; BP diastolic 25–96
--- NOTE | 2021-03-16 01:00 | NUR ---
CONT PULLING AT LINES, CLOTHES, TURNING SELF SIDEWAYS IN BED. REPOSITIONED AND LARY CARE GIVE AD GISSELLE. BP CONT LABILE
--- NOTE | 2021-03-16 05:30 | NUR ---
GIVEN AM CHG BATH AFTER AN INCONTINENT EPISODE, LINENS CHANGED. CONT TO TITRATE LEVO BUT UNABLE TO KEEP IT UP. WILL CONT WITH CURRENT PLAN OF CARE.
[2021-03-16 08:16] LABS: HEMATOCRIT 25.8 % (36.0-48.0); HEMOGLOBIN 8.5 g/dL (12-16); LYMPHOCYTE ABS# 0.51 10x3/uL (1.18-3.74); MCH 30.2 pg (26.0-34.0); MCHC 32.9 g/dL (31.0-37.0); MEAN PLATELET VOLUME 12.1 fL (7.4-10.4); NEUTROPHIL ABS# 0.33 10x3/uL (1.56-6.13); PLATELET COUNT 146 10x3/uL (130-400); RBC 2.81 10x6/uL (4.00-5.40); RDW 17.7 % (11.5-14.5)
[2021-03-16 08:18] LABS: MCV 91.8 fL (80.0-100.0); WBC 1.5 10x3/uL (4.8-10.8)
[2021-03-16 08:57] LABS: ALBUMIN 0.9 g/dL (3.4-5.0); BILIRUBIN - TOTAL 1.39 mg/dL (0.2-1.3); CALCIUM 7.8 mg/dL (8.5-10.1); MAGNESIUM - SERUM 2.5 mg/dL (1.8-2.4); PHOSPHOROUS 6.1 mg/dL (2.5-4.9); POTASSIUM - SERUM 4.1 mmol/L (3.5-5.1); PROTEIN - SERUM 4.2 g/dL (6.4-8.2)
[2021-03-16 08:58] LABS: ANION GAP 24.5 mmol/L (8-16); CARBON DIOXIDE 12.6 mmol/L (21.0-32.0); CREATININE - SERUM 2.3 mg/dL (0.6-1.3)
[2021-03-16 08:59] LABS: BURR CELLS 1+; LYMPHOCYTES 67 % (15-50); MONOCYTES 11 % (2-11); NEUTROPHILS 15 % (40-80); PLATELET ESTIMATE NORMAL
[2021-03-16 09:00] LABS: TARGET CELLS OCC
[2021-03-16 12:49] LABS: ANION GAP 17.5 mmol/L (8-16); CALCIUM 7.2 mg/dL (8.5-10.1); CARBON DIOXIDE 24.4 mmol/L (21.0-32.0); CREATININE - SERUM 2.2 mg/dL (0.6-1.3); POTASSIUM - SERUM 3.9 mmol/L (3.5-5.1)
[2021-03-16 12:50] LABS: BASOPHILS 0 % (0-2); EOSINOPHILS 1.7 % (0-7); IMMATURE GRANULOCYTES 0.6 % (0-5); LYMPHOCYTE ABS# 0.53 10x3/uL (1.18-3.74); LYMPHOCYTES 30.5 % (15-50); MCH 30.2 pg (26.0-34.0); MCHC 33.5 g/dL (31.0-37.0); MCV 90.1 fL (80.0-100.0); MEAN PLATELET VOLUME 12.5 fL (7.4-10.4); MONOCYTES 7.5 % (2-11); NEUTROPHIL ABS# 1.04 10x3/uL (1.56-6.13); NEUTROPHILS 59.7 % (40-80); PLATELET COUNT 118 10x3/uL (130-400); RDW 17.4 % (11.5-14.5)
[2021-03-16 12:51] LABS: RBC 2.22 10x6/uL (4.00-5.40)
[2021-03-16 12:52] LABS: WBC 1.7 10x3/uL (4.8-10.8)
[2021-03-16 12:53] LABS: HEMOGLOBIN 6.7 g/dL (12-16)
[2021-03-16 15:54] LABS: HEMOGLOBIN 8.1 g/dL (12-16)
--- NOTE | 2021-03-16 17:45 | NUR ---
0800-PT NOT TALKATIVE YESTERDAY BUT ABLE TO FOLLOW COMMANDS AND NODS TO ANSWER QUESTIONS, PT DENIES PAIN AT THIS TIME BUT IS MOANING. WILL CONTINUE TO MONITOR CLOSELY. 1200-TALKED TO DR ALBARADO AND DR GRADY REGARDING PTS CONDITION. THE PATIENT IS LESS RESPONSIVE THAN EARLIER THIS SHIFT. ABG ORDERED AND RESULTED, DR ALBARADO TALKED TO AND CONSULTED DR. BRITTON. 1330-DR GRADY TALKED WITH THE FAMILY AND UPDATED THEM ON THE PTS CONDITION AND FAMILY REQUESTED EVERYTHING TO BE DONE FOR THE PT IN THE EVENT THAT SHE CODES. 1545-DR BRITTON HAS BEEN IN, ASSESSED THE PT, AND MADE SEVERAL MED CHANGES AND NEW ORDERS. SEE MILY AND NOTES. DR CHAPMAN WAS CALLED FOR ART LINE AND CENTRAL LINE PLACEMENT. 1615-DR CHAPMAN HAS PLACED A LEFT SUBCLAVIAN CENTRAL LINE AND A LEFT FEMORAL ART LINE. 1620-ART LINE IS NOT WORKING PROPERLY AND DR CHAPMAN AWARE. 1700-DR ACUNA IN TO SEE PT, SEE MILY AND ORDERS AND NOTES. 1745-DR. CHAPMAN BACK IN AND REPLACED ART LINE AND IT IS NOW WORKING WITH GOOD WAVEFORM AND PRESSURE.
--- NOTE | 2021-03-16 20:00 | NUR ---
Rec'd pt non-responsive, resp shallow, rapid. Vasopressin and Levophen at max doses, SBP MINIMALLY MAINTAINING IN 80S. INITIAL ASSESSMENT COMPLETED AND RECORDED PER FLOW SHEET. WILL CONT TO MONITOR CLOSELY AND ADJUST MEDS NECESSARY.
[2021-03-16 20:34] LABS: HEMOGLOBIN 7.6 g/dL (12-16)
[2021-03-16 23:50] LABS: BASOPHILS 0.3 % (0-2); EOSINOPHILS 0.6 % (0-7); HEMATOCRIT 20.3 % (36.0-48.0); IMMATURE GRANULOCYTES 0.3 % (0-5); LYMPHOCYTE ABS# 1.64 10x3/uL (1.18-3.74); LYMPHOCYTES 52.9 % (15-50); MCH 29.8 pg (26.0-34.0); MEAN PLATELET VOLUME 12.5 fL (7.4-10.4); MONOCYTES 7.1 % (2-11); NEUTROPHILS 38.8 % (40-80); RBC 2.05 10x6/uL (4.00-5.40); RDW 17.3 % (11.5-14.5)
[2021-03-16 23:53] LABS: WBC 3.1 10x3/uL (4.8-10.8)
[2021-03-16 23:54] LABS: HEMOGLOBIN 6.1 g/dL (12-16); PLATELET COUNT 61 10x3/uL (130-400)
[2021-03-17 00:12] LABS: ALBUMIN 0.8 g/dL (3.4-5.0); BILIRUBIN - TOTAL 1.87 mg/dL (0.2-1.3); CARBON DIOXIDE 20.1 mmol/L (21.0-32.0); CREATININE - SERUM 2.3 mg/dL (0.6-1.3)
[2021-03-17 00:13] LABS: ANION GAP 23.7 mmol/L (8-16); CALCIUM 10.9 mg/dL (8.5-10.1); POTASSIUM - SERUM 8.8 mmol/L (3.5-5.1); PROTEIN - SERUM 2.8 g/dL (6.4-8.2)
--- NOTE | 2021-03-17 00:30 | NUR ---
BLOCKED DOWN TO ASYSTOLE AT 2315, CODE CALLED AND ENSUED. SEE CODE BLUE SHEET FOR DETAILS.
== END 2021-03-17 00:02 | DRG 871 ==
LOC: D.ER 22:20 → D.ICU 23:59
PROVIDERS: Emergency Medicine; Family Medicine; Surgery; ADMIT Family Medicine; ATTEND Family Medicine
PROC: 0DJ08ZZ Inspection of Upper Intestinal Tract, Via Natural or Artificial Opening Endoscopic (ICD-10-PCS; principal; 2021-03-15 12:05)
PROC: 04HL33Z Insertion of Infusion Device into Left Femoral Artery, Percutaneous Approach (ICD-10-PCS; 2021-03-16)
PROC: 05H633Z Insertion of Infusion Device into Left Subclavian Vein, Percutaneous Approach (ICD-10-PCS; 2021-03-16)
PROC: B547ZZA Ultrasonography of Left Subclavian Vein, Guidance (ICD-10-PCS; 2021-03-16)
PROC: 04HL33Z Insertion of Infusion Device into Left Femoral Artery, Percutaneous Approach (ICD-10-PCS; 2021-03-16)
DX: A41.9 Sepsis, unspecified organism (principal); K25.4 Chronic or unspecified gastric ulcer with hemorrhage; N17.0 Acute kidney failure with tubular necrosis; R65.21 Severe sepsis with septic shock; J96.01 Acute respiratory failure with hypoxia; I82.509 Chronic embolism and thrombosis of unspecified deep veins of unspecified lower extremity; I47.2 Ventricular tachycardia; D62 Acute posthemorrhagic anemia; E87.2 Acidosis; K72.90 Hepatic failure, unspecified without coma; Z79.01 Long term (current) use of anticoagulants; I10 Essential (primary) hypertension; F20.9 Schizophrenia, unspecified; F31.9 Bipolar disorder, unspecified; F03.90 Unspecified dementia, unspecified severity, without behavioral disturbance, psychotic disturbance, mood disturbance, and anxiety; E80.6 Other disorders of bilirubin metabolism; J44.9 Chronic obstructive pulmonary disease, unspecified; Z72.0 Tobacco use; I46.9 Cardiac arrest, cause unspecified; D72.819 Decreased white blood cell count, unspecified; D69.6 Thrombocytopenia, unspecified; D70.9 Neutropenia, unspecified